=== PATIENT | female | born 1950 | race Caucasian/White ===

== ENCOUNTER 2018-03-13 11:40 | Observation (INO) | payer MEDICARE ==
[2018-03-13] MEDS ORDERED: ISOVUE-370 76%-LOCM 1 ML ONE (12:06)
[2018-03-13 13:13] LABS: #Eosinphils 0.1 thou/uL (0.0-0.7); #Lymphocytes 2.5 thou/uL (1.20-3.40); #Monocytes 0.5 thou/uL (0.11-0.59); #Neutrophils 7.5 thou/uL (1.40-6.50); %Basophils 0.3 % (0.0-1.0); %Eosinophils 0.6 % (0.0-10.0); %Lymphocytes 23.8 % (21.0-51.0); %Monocytes 4.9 % (0.0-10.0); %Neutrophils 70.5 % (42.0-75.0); Mean Corpuscular HGB CONC 33.8 g/dL (32.0-36.0); Mean Corpuscular Hemoglobin 29.5 pg (27.0-31.0); Mean Corpuscular Volume 87.3 fL (78.0-98.0); Mean Platelet Volume 6.9 fL (7.4-10.4); Platelet Count 348 thou/uL (130-400); RBC Distribution Width 14.2 % (11.5-14.5); White Blood Cell (WBC) Count 10.6 thou/uL (4.8-10.8)
[2018-03-13 13:27] LABS: ALT (SGPT) Less than 7 U/L (8-55); AST (SGOT) 10 U/L (5-34); Albumin 3.4 g/dL (3.4-4.8); Alkaline Phosphatase 110 U/L (40-150); Anion Gap 18 mmol/L (10-20); BUN (Urea Nitrogen) 8 mg/dL (9.8-20.1); Bilirubin, Total 0.4 mg/dL (0.2-1.2); CK (CPK) 34 U/L (29-168); Calc. Creatinine Clearance 0 mL/min (70-130); Calcium 8.7 mg/dL (7.8-10.44); Carbon Dioxide 23 mmol/L (23-31); Chloride 99 mmol/L (98-107); Estimated GFR-MDRD Greater than 90; Globulin 3.2 g/dL (2.4-3.5); Glucose 108 mg/dL (80-115); Lipase 15 U/L (8-78); Potassium 4.2 mmol/L (3.5-5.1); Protein, Total 6.6 g/dL (6.0-8.3); Sodium 136 mmol/L (136-145)
[2018-03-13 13:28] LABS: CKMB 0.7 ng/mL (0-6.6); Troponin I Less than 0.010 ng/mL (< 0.028)
--- NOTE | 2018-03-13 13:45 | CT ---
CT BRAIN NONCONTRAST: HISTORY: 67-year-old female with altered mental status and head trauma from fall. FINDINGS: There is no midline shift or any other mass effect. There is no evidence of acute intracranial hemor rhage, large cortical infarct, obstructive hydrocephalus, or extraaxial fluid collection. The calvar ium is intact. IMPRESSION: No acute intracranial findings. jn [] POS: [facility]
--- NOTE | 2018-03-13 13:46 | RAD ---
CHEST 1 VIEW: Date: 03/13/18 HISTORY: Altered mental status. COMPARISON: CT chest dated 02/15/16. Chest 1 view dated 02/13/16. FINDINGS: Chronic pleural and parenchymal changes lung bases. There is mild retraction of the right minor fissu re. There appears to be some scarring in the right upper lobe. Heart size upper limits of normal. IMPRESSION: 1. Severe retraction of the right minor fissure with what appears to be scarring in the right upper lobe, although nonemergent CT chest recommended for further characterization. 2. Mild chronic interstitial opacities both lung bases. POS: [facility]
[2018-03-13 13:52] LABS: Bilirubin Negative (Negative); Blood, Urine Negative (Negative); Clarity CLOUDY (Clear); Glucose, Urine (Dipstick) Negative (Negative); Leukocyte Small (Negative); Nitrite Positive (Negative); Protein, Urine (Dipstick) Negative (Neg-Trace); Urobilinogen 0.2 mg/dL (0.2-1.0); pH, Urine 5.5 (5.0-9.0)
[2018-03-13 13:54] LABS: Bacteria/HPF 4+ HPF (None Seen); Hyaline Casts/LPF 0-3 HYALINE CAST LPF (0-3 Hyaline); Pathc Cast-AUWi Flag 0.43 (0-2.49); RBC/HPF 0-3 HPF (0-3); Squamous Epithelial 0-3 HPF (0-3)
[2018-03-13 14:01] LABS: Amphetamine Not Detected (NotDetected); Barbiturates Screen Not Detected (NotDetected); Benzodiazepine Screen Detected (NotDetected); Cocaine Metabolite Screen Not Detected (NotDetected); Medtox Control Line Valid? VALID (VALID); Medtox Reader # READER 1; Methadone Not Detected (NotDetected); Methamphetamine Not Detected (NotDetected); Opiate Screen Detected (NotDetected); Oxycodone Screen Not Detected (NotDetected); Phencyclidine (PCP) Not Detected (NotDetected); THC/Cannabinoid Screen Not Detected (NotDetected); Tricyclic Screen Detected (NotDetected)
--- NOTE | 2018-03-13 14:34 | ULT ---
RIGHT LOWER EXTREMITY VENOUS DOPPLER: Date: 03/13/18 HISTORY: Right lower extremity swelling, pain, edema. COMPARISON: Ultrasound dated 02/13/16. FINDINGS: Real-time Thompson scale and color Doppler with spectral analysis of the right lower extremity venous sy stem was performed with the linear transducer. Common femoral, femoral, proximal portions of greater saphenous and deep femoral veins, as well as the popliteal and posterior tibial veins were interrogat ed. There is a complex popliteal cyst, which is thick-welled. Moderate lower extremity edema. No deep tricia ous thrombosis. IMPRESSION: No deep venous thrombosis. POS: [facility]
--- NOTE | 2018-03-13 17:24 | RAD ---
TWO VIEW LEFT HIP 03/13/18 CLINICAL HISTORY: Posttraumatic left hip pain, injury. There is no fracture or dislocation of the left hip. Scattered osseous degenerative change is present . IMPRESSION: No acute left hip fracture. POS: [facility]
--- NOTE | 2018-03-13 17:42 | CT ---
CTA CHEST WITH 3D VOLUME RENDERING 03/13/18 INDICATION: Elevated D-dimer with weakness. FINDINGS: There is no evidence of significant filling defect of the pulmonary arterial system to indicate an ac geni pulmonary embolus. Scattered vascular calcification and noncalcified plaque is present within the regional arterial structures. There are bilateral ground glass nodular pulmonary parenchymal opaciti es in addition to subcentimeter noncalcified pulmonary nodularity. No effusion. Incidental note of l ow density foci of each kidney, partially imaged favoring cysts although incompletely characterized. There is punctate calcification, nonobstructive involving left kidney. Cholecystectomy clips are pres ent. IMPRESSION: 1. No acute pulmonary embolus. 2. Scattered ground glass and noncalcified pulmonary nodules, bilaterally. The findings are nons pecific and could relate to atypical infection and therefore followup CT thorax upon completion of tr eatment regimen and resolution of acute symptoms, in 2 to 3 months is warranted to evaluate for expec montrell resolution. At this time, additional noncalcified pulmonary nodules may also be reassessed. POS: [facility]
--- NOTE | 2018-03-13 17:47 | RAD ---
3FRONTAL VIEW PELVIS: 03/13/18 No prior comparison. INDICATION: Posttraumatic pelvic pain. FINDINGS: There is high density contrast within the urinary bladder which does partially obscure osseous struct ures of this region. No discrete fracture or dislocation otherwise identified. IMPRESSION: No definite evidence for acute pelvic fracture, within limitations. POS: [facility]
[2018-03-13] MEDS ORDERED: Ondansetron HCl/PF 4 MG/2 ML Vial IVP PRN (22:33)
[2018-03-13] MEDS ORDERED: Acetaminophen 325 MG TAB PO PRN (22:33)
[2018-03-13] MEDS ORDERED: Lorazepam 0.5 MG TAB PO PRN (22:35)
[2018-03-14] MEDS: HYDROcodone/Acetaminophen 7.5/325 mg Tablet PO PRN ×3 (00:28→14:17)
[2018-03-14 03:28] VITALS: BMI 20.6
--- NOTE | 2018-03-14 04:45 | HP ---
CODE STATUS: FULL RESUSCITATION. TIME OF EVALUATION: 10:05 p.m. No PCP. CHIEF COMPLAINT: The patient had a fall from bed. HISTORY OF PRESENT ILLNESS: This is a 67-year-old female patient with a past medical history of hypo thyroidism, GERD, hyperlipidemia, hypertension, and leaking problems. The patient came to the hospit al after having a fall, she reported that she fell on her left side and was unable to stand up. She reported having decreased strength. Also, she cannot be specific about if it was unilateral, no jani r triggers, no alleviating factors, symptoms are severe. REVIEW OF SYSTEMS: Constitutional: No fever or chills. Generalized weakness. Respiratory: No cou gh or sputum production or shortness of breath. Cardiovascular: No chest pain, palpitation, shortne ss of breath. Gastrointestinal: No nausea, no vomiting, diarrhea, abdominal pain. 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 Genitourinary: No burning with urination. Extremities: No le g swelling. All other systems were reviewed and negative except for the findings mentioned above. PAST MEDICAL HISTORY: Has been mentioned in the HPI. SOCIAL HISTORY: No drug use every day smoker, 2 packs per day. PAST SURGICAL HISTORY: Cholecystectomy. PSYCHIATRIC HISTORY: Depression. FAMILY HISTORY: Reviewed and noncontributory for current presentation. ALLERGIES: PENICILLIN and SULFA. REPORTED MEDICATIONS: Levothyroxine, lisinopril, amitriptyline, gabapentin, Nexium, [place]. PHYSICAL EXAMINATION: VITAL SIGNS: On presentation, blood pressure 89/57, heart rate 108, temperature 98.3, oxygen saturat ion 91, the blood pressure has remained in the 110s. GENERAL APPEARANCE: The patient is alert, oriented, not in acute distress. HEENT: Eyes, normal conjunctivae. Moist oral mucosa. Anicteric. NECK: No JVD. RESPIRATORY: Bilateral air entry. No rales, no wheezes. Symmetric expansion. CARDIOVASCULAR: Normal rate, regular rhythm. No murmurs, no gallop. No edema. ABDOMEN: Soft, normal bowel sounds. MUSCULOSKELETAL: Baseline range of motion and strength. No tenderness. SKIN: Warm and intact. No pallor, no rash or redness. NEUROLOGIC: Baseline sensory. No evidence of any new focal weakness. The patient is at baseline. Cranial nerves seem to be intact. PSYCHIATRIC: The patient is a good mood. No anxiety, oriented, optimal judgment. IMAGING AND LABORATORY DATA: EKG was reviewed. The patient has normal sinus rhythm with a rate of 9 2 with low voltage QRS, left anterior fascicular block, QRS 84, QT corrected 460. The chest x-ray wa s reviewed. The patient has severe retraction of the right minor fissure. There appears to be scarr ing of the right upper lobe. Also, no emergency discharge recommended. No further characterization. Mild chronic interstitial opacities in both lungs. Brain CT was done and it was reported as no acu te intracranial finding. Vascular ultrasound was done and no deep venous thrombosis. CTA was done. No acute pulmonary embolism and scattered ground glass opacities. Noncalcified pulmonary nodules bi laterally. The findings are nonspecific and could be related to atypical infection and therefore fol low up CT thorax regimen and resolution of acute symptoms into 3 months is warranted to evaluat e for expected resolution. Labs are reviewed. The patient has white count 10.6, hemoglobin 13, MCV 87, platelet count 384. D-dimer is 6.9. Sodium 136, potassium 4.2, chloride 99, carbon dioxide 23, anion gap of 18, creatinine 0.6. LFTs were normal. Troponin was negative. White count in the urine was 11 to 20. Toxicology opiates detected, tricyclics detected, benzodiazepines detected. Three fr ontal views of pelvis, no definite evidence for acute pelvic fracture within limitations. Hip x-ray, no acute left hip fracture. ASSESSMENT AND PLAN: The patient presented to the hospital for the following medical problems. 1. Status post fall, with left-sided weakness reported that lasted for a few minutes, unclear etiolo gy, transient ischemic attack remains in the differential. The patient will get a stroke workup. We will follow, we will treat accordingly. 2. Urinary tract infection. Urinalysis is positive, patient received antibiotics, follow up culture s, adjust treatment as needed. 3. Possible right leg cellulitis. The patient had a trauma few days ago. The right leg is more red than the left one, patient has already on antibiotics, monitor, and adjust treatment as needed. 4. Hyperlipidemia, reconcile home medications, adjust treatment as needed. 5. Uncontrolled hypertension. The patient presented with hypotension, responded to fluids, unclear etiology. We will monitor, we will treat accordingly. 6. Deep venous thrombosis prophylaxis. D-dimer was high, CT angio was negative. 7. Possible atypical pneumonia, antibiotics, we will continue, adjustment treatment as needed.
[2018-03-14 05:48] LABS: #Basophils 0.1 thou/uL (0.0-0.2); #Eosinphils 0.2 thou/uL (0.0-0.7); #Lymphocytes 1.8 thou/uL (1.20-3.40); #Monocytes 0.4 thou/uL (0.11-0.59); #Neutrophils 3.7 thou/uL (1.40-6.50); %Basophils 1.6 % (0.0-1.0); %Eosinophils 2.9 % (0.0-10.0); %Lymphocytes 29.5 % (21.0-51.0); Mean Corpuscular HGB CONC 31.8 g/dL (32.0-36.0); Mean Corpuscular Volume 88.2 fL (78.0-98.0); Platelet Count 302 thou/uL (130-400); RBC Distribution Width 14.4 % (11.5-14.5); Red Blood Cell (RBC) Count 3.92 mill/uL (4.20-5.40); White Blood Cell (WBC) Count 6.2 thou/uL (4.8-10.8)
[2018-03-14 06:20] LABS: Anion Gap 10 mmol/L (10-20); BUN (Urea Nitrogen) 6 mg/dL (9.8-20.1); Calc. Creatinine Clearance 93 mL/min (70-130); Calcium 8.3 mg/dL (7.8-10.44); Carbon Dioxide 26 mmol/L (23-31); Cardiac Risk 3.9 (Less than 4.5); Chloride 108 mmol/L (98-107); Cholesterol 125 mg/dl (< 200 Desired); Estimated GFR-MDRD Greater than 90; Glucose 83 mg/dL (80-115); HDL Cholesterol 32 mg/dL (>60 Neg Risk); LDL Cholesterol, Calculated 75 mg/dL; Potassium 4.2 mmol/L (3.5-5.1); Sodium 140 mmol/L (136-145); Triglycerides 91 mg/dL (Less than 150)
[2018-03-14] MEDS ORDERED: Aspirin 325 mg Enteric Coated Tablet PO SCH (09:00)
[2018-03-14] MEDS ORDERED: Levothyroxine Sodium 50 MCG TAB PO SCH (09:00)
[2018-03-14] MEDS ORDERED: Lisinopril 5 MG TAB PO SCH (09:00)
[2018-03-14] MEDS ORDERED: Enoxaparin Sodium 40 MG/0.4 ML SYRINGE SC SCH (09:00)
[2018-03-14] MEDS: Gabapentin 300 MG CAP PO SCH ×2 (09:43→14:17)
--- NOTE | 2018-03-14 11:43 | ULT ---
ULTRASOUND DOPPLER DUPLEX CAROTID: Date: 03/14/18 HISTORY: 67-year-old female status post TIA. TECHNIQUE: Thompson scale, color flow, and spectral analysis of major arteries of neck. FINDINGS: The bilateral internal carotid arteries are tortuous. There is mild plaque at the bilateral proximal internal carotid arteries, including carotid bulbs. Highest peak systolic velocities in the internal carotid arteries are 110 cm/s on the right and 125 cm/s on the left. End-diastolic velocities are 30 cm/s bilaterally. Vertebral artery flow is antegrade bilaterally. ICA/CCA ratios are 0.9 on the right and 1.2 on the left. IMPRESSION: 1. Mild atherosclerotic plaque at the bilateral carotid bulbs. 2. No evidence of hemodynamically significant stenosis. 3. Tortuous of the bilateral internal carotid arteries. POS: [facility]
--- NOTE | 2018-03-14 12:57 | CON ---
DATE OF CONSULTATION: 03/14/2018 CHIEF COMPLAINT: TIA. HISTORY OF PRESENT ILLNESS: Patient is a 67-year-old right-handed lady who states she is quite activ e normally. She woke up yesterday morning like her normal routine and she suddenly felt dizzy and fe ll down and she was lying there until her family helped brought her to the ER and after she came to [facility] ER, she felt like her left side was better. She felt left-sided weakness and she could not get up and she has had decreased strength on the left side, but it resolved at this time. Today, she feels like she is back to her baseline. Normally, she is extremely active, does not sit down and is const antly moving and doing things around the house. PREVIOUS MEDICAL HISTORY: Patient has hypothyroidism, hypertension, gastroesophageal reflux disease and hypercholesterolemia. She has lichen planus and osteoporosis. SOCIAL HISTORY: She smokes 1 pack a day for a number of years. No alcohol. [facility]. PAST SURGICAL HISTORY: She had a cholecystectomy in the past. She has history of hysterectomy and l eft cataract. FAMILY HISTORY: Negative for any stroke in her family. ALLERGIES: She is allergic to PENICILLIN, SULFA DRUGS. CURRENT MEDICATIONS: She does not take aspirin at home. Now, she thinks she probably should take so me aspirin every day and she also takes levothyroxine, lisinopril, amitriptyline, gabapentin, Nexium, and [place] at home. REVIEW OF SYSTEMS: PULMONARY: Positive for cough which is chronic in her case. CARDIOVASCULAR: Hi story of chest pain or palpitations. GASTROINTESTINAL: Positive for acid reflux, but negative for a ny diarrhea or vomiting. GENITOURINARY: Negative for dysuria or blood in urine. NEUROLOGIC: Posit aleksandr for dizziness, fall and left-sided weakness which were transient. HEMATOLOGIC: Normal. LABORATORY DATA: White count 6.2, hemoglobin 11, hematocrit 34.6 and platelets 302. Chemistry: Sod ium 140, potassium 4.2, chloride 108, bicarbonate 26, BUN 6, creatinine 0.50. Triglycerides 91, chol esterol 125, LDL 75 and HDL 32. Heart disease risk ratio 3.9. TSH is 1.55. Urinalysis positive for nitrite and small leukocyte esterase. PHYSICAL EXAMINATION: VITAL SIGNS: Blood pressure 134/76, pulse 98, temperature 98.1, respiratory rate is 18. GENERAL APPEARANCE: Thin built lady who is coughing. Family by her bedside. She has some bruising in her left knee area as well as her hip. CHEST: Clear vesicular breathing. HEART: S1, S2 heard, no murmurs. ABDOMEN: Soft and nontender. NEUROLOGICAL: Higher intellectual functions are normal. Cranial nerves II-XII normal. Normal extra ocular movements. 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 Tongue midline, no atrophy noted. Normal hearing to finger rub bila terally and normal elevation of palate. Motor exam: Bulk normal, tone normal, strength 5/5 in upper and lower extremities. Muscle groups tested, deltoid, biceps, triceps, wrist extension/flexion, fin carri extension, flexion iliopsoas, hamstrings, quadriceps, ankle dorsiflexion and plantarflexion bilat erally. Cerebellar: Normal ejtofb-sy-hkbp and sldx-om-klts. SENSORY: Normal touch and temperature, vibration and proprioception bilaterally. IMAGING DATA: MRI is pending. Brain CT scan report showed no acute intracranial changes and her car otid Doppler showed mild atherosclerotic plaque at the bilateral carotid bulbs. No evidence of any h emodynamically significant stenosis and her hip x-ray was negative for any fracture. Her pelvic x-ra y was also negative for any fractures. Ultrasound of her lower extremities was negative for any DVTs and chest CT angio shows bilateral pulmonary nodules, could be due to atypical infection. IMPRESSION: Patient is a 67-year-old lady with history of fall, dizziness as well as left-sided weak ness. Her dizziness and left-sided weakness have resolved. On x-ray, she did not have any fractures and there are no clots in either her long or her legs. Carotid Dopplers are negative. Her clinical examination is normal at this time. Due to hypertension and smoking, she does have high risk factor for stroke. Her MRI is currently pending. Diagnosis is most consistent with transient ischemic att ack. RECOMMENDATIONS: 1. I will review MRI report. 2. Aspirin for stroke prophylaxis and prevention. 3. I advised her on lifestyle changes, particularly regarding her smoking. She could start a smokin g cessation program. I will follow up patient with you. She is still here and through request to Dr Deborah Browning for continuity of care. If her MRI is negative, she can be discharged home.
[2018-03-14 13:08] VITALS: BP 129/77; TEMP 98
--- NOTE | 2018-03-14 13:13 | MRI ---
MRI BRAIN NONCONTRAST: HISTORY: 67-year-old female with altered mental status and head trauma. TIA. FINDINGS: The ventricles are normal in size and configuration. There is no restricted diffusion, midline shift or any other mass effect, recent intraaxial hemorrhage, or extraaxial fluid collection. There are m ultiple scattered small T2-hyperintensities in the cerebral white matter consistent with mild chroni c ischemic white matter changes due to mild microvascular atherosclerosis. IMPRESSION: 1. Mild chronic ischemic white matter changes. 2. Otherwise negative. jn[] POS: [facility]
--- NOTE | 2018-03-14 13:14 | PDOC.PN ---
- Subjective Encounter Start Date: 03/14/18 Encounter Start Time: 13:13 Subjective: feels better.reports h/o back pain d/t chr fractures -: /o r knee pain & swelling for months -: c/o runny nose,chills and headache - Objective Resuscitation Status: Resuscitation Status FULL:Full Resuscitation MAR Reviewed: Yes Vital Signs & Weight: Vital Signs (12 hours) Temp Pulse Resp BP BP Pulse Ox 03/14/18 12:00 98.0 F 78 20 129/77 93 L 03/14/18 09:50 90 134/76 03/14/18 09:43 77 03/14/18 08:59 98.1 F 77 18 03/14/18 07:45 98.1 F 77 18 106/64 92 L 03/14/18 04:00 97.7 F 91 18 106/69 95 Weight Weight 120 lb 3.2 oz Result Diagrams: 03/14/18 05:28 03/14/18 05:28 Additional Labs: Microbiology 03/13/18 13:09 Venous blood - Right Hand Blood Culture - Preliminary Specimen has been received and culture in progress. No Growth to date. 03/13/18 13:09 Venous blood - Left Arm Blood Culture - Preliminary Specimen has been received and culture in progress. No Growth to date. labs reviewed Phys Exam - Physical Examination Constitutional: NAD HEENT: PERRLA, moist MMs, sclera anicteric, oral pharynx no lesions Neck: no nodes, no JVD, supple, full ROM Respiratory: no wheezing, no rales, no rhonchi, clear to auscultation bilateral Cardiovascular: RRR, no significant murmur Gastrointestinal: soft, non-tender, no distention, positive bowel sounds Musculoskeletal: no edema, pulses present Neurological: non-focal, normal sensation, moves all 4 limbs Psychiatric: normal affect, A&O x 3 Skin: no rash Dx/Plan (1) Left-sided weakness Code(s): R53.1 - WEAKNESS Status: Acute (2) UTI (urinary tract infection) Status: Acute (3) Fall Code(s): W19.XXXA - UNSPECIFIED FALL, INITIAL ENCOUNTER Status: Acute (4) Hypothyroidism Code(s): E03.9 - HYPOTHYROIDISM, UNSPECIFIED Status: Chronic (5) Tobacco abuse Code(s): Z72.0 - TOBACCO USE Status: Chronic - Plan plan discussed w/ family, PT/OT, social service assistant, out of bed/ambulate, DVT proph w/SCDs Carotid US does not show much plaque ,no stenosis -: Awaiting MRI results -: Consult CM for HH.pt w chr vertebral fractures w pain w limited mobility -: Hd stable.blood Cx negative so far -: cont ABx for UTI. * . Review of Systems - Review of Systems Constitutional: chills. negative: fever, sweats, weakness, malaise, other ENT: negative: Ear Pain, Ear Discharge, Nose Pain, Nose Discharge, Nose Congestion, Mouth Pain, Mouth Swelling, Throat Pain, Throat Swelling, Other Musculoskeletal: Back Pain, Other - Medications/Allergies Allergies/Adverse Reactions: Allergies Allergy/AdvReac Type Severity Reaction Status Date / Time Penicillins Allergy Verified 01/25/13 21:43 sulfacetamide sodium Allergy Verified 01/25/13 21:44 [From Sulfamide] Medications: Current Medications Acetaminophen (Tylenol) 650 mg PO Q4H PRN PRN Reason: Headache/Fever or Pain Hydrocodone Bitart/Acetaminophen ([place] 7.5/325) 1 tab PO Q6H PRN PRN Reason: Moderate Pain (4-6) Last Admin: 03/14/18 09:43 Dose: 1 tab Alendronate Sodium (Fosamax) 70 mg PO Q7D [facility] Amitriptyline HCl (Elavil) 50 mg PO HS [facility] Aspirin (Ecotrin) 325 mg PO DAILY [facility] Last Admin: 03/14/18 09:43 Dose: 325 mg Atorvastatin Calcium (Lipitor) 10 mg PO HS [facility] Enoxaparin Sodium (Lovenox) 40 mg SC 0900 [facility] Last Admin: 03/14/18 09:44 Dose: 40 mg Gabapentin (Neurontin) 600 mg PO TID [facility] Last Admin: 03/14/18 09:43 Dose: 600 mg Levofloxacin 750 mg/ Device 150 mls @ 100 mls/hr IVPB 1600 [facility] Levothyroxine Sodium (Synthroid) 50 mcg PO DAILY [facility] Last Admin: 03/14/18 09:43 Dose: 50 mcg Lisinopril (Zestril) 5 mg PO DAILY [facility] Last Admin: 03/14/18 09:43 Dose: 5 mg Lorazepam (Ativan) 0.5 mg PO PRN PRN PRN Reason: Anxiety Ondansetron HCl (Zofran) 4 mg IVP Q6H PRN PRN Reason: Nausea/Vomiting Pantoprazole Sodium (Protonix) 40 mg PO QAM[facility] Last Admin: 03/14/18 09:43 Dose: 40 mg
[2018-03-14] MEDS ORDERED: Amitriptyline HCl 100 MG TAB PO SCH (21:00)
[2018-03-14] MEDS ORDERED: Atorvastatin Calcium 10 MG TAB PO SCH (21:00)
--- NOTE | 2018-03-14 22:17 | DIS ---
DATE OF ADMISSION: 03/13/2018 DATE OF DISCHARGE: 03/14/2018 CONDITION AT THE TIME OF DISCHARGE: Stable and improved. DISCHARGE DIAGNOSES: 1. Transient ischemic attack. 2. Urinary tract infection. 3. Fall. 4. Chronic back pain. 5. Osteoarthritis of the back and knee. 6. Chronic vertebral fractures. 7. Hypothyroidism. 8. Ongoing tobacco abuse. DISCHARGE DISPOSITION: Home with home health. rn manager is working with her to have set up Home Health for physical therapy and occupational therapy. PRIMARY CARE PHYSICIAN: Bal Pereira MD PROCEDURES DONE IN THE HOSPITAL: 1. Vascular ultrasound of the right lower extremity which is negative for any DVT. 2. CT angio of the thorax, which is negative for any pulmonary embolism. 3. MRI of the brain which is negative for any acute infarction. Chronic white matter changes seen. 4. Carotid Doppler ultrasound, which is negative for any significant stenosis or block. 5. Transthoracic echocardiogram, the results are pending. INHOUSE CONSULTATION: Neurology, Dr. Suzi Carias. DISCHARGE MEDICATIONS: NEW MEDICATIONS: Aspirin 81 mg daily. RESUME HOME MEDICATIONS: As follows, pravastatin 40 mg daily, levothyroxine 50 mcg daily, Elavil 50 mg daily, levofloxacin 500 mg p.o. daily for 5 more days; Neurontin 300 mg p.o. t.i.d., please note t he dose has been decreased from 600 mg p.o. t.i.d. as per patient's request; lisinopril 5 mg daily, l orazepam as needed, Nexium 40 mg daily, Fosamax every 7 days, [place] p.r.n. as home dosages. No new n arcotic prescriptions were given. BRIEF HISTORY: Ms. Singh is a 67-year-old female with known history of hypothyroidism, GERD, dyslipi demia, hypertension, and tobacco abuse who presented to the emergency room with complaints of sustain ing a fall and inability to stand up. She also noticed decreased strength. She reported that she wa s eventually able to get up with the help of the friend she lives with. She denies any loss of consc iousness. She denies any prodromal symptoms prior to the fall. She does report that lately she has been falling quite often. She reported that she has history of some vertebral fractures as well as h as been suffering right knee pain and swelling for the last few months. At the time of admission, [facility] was hemodynamically stable. A CT scan of the brain was done in the emergency room which was negati ve for any acute changes. She also had some complaints of right leg pain or swelling, so right lower extremity ultrasound was done which was negative as well. She had elevated D-dimer at 6.9, so CT an hermelinda was also done which was negative for any pulmonary embolism. She did have some scattered nonspec ific ground glass opacities bilaterally. She had no pulmonary symptoms at the time of presentation. Please see admission history and physical for further detail. She did have some pyuria in the urina lysis. Pelvic x-rays and left hip x-rays were negative for any fractures. HOSPITAL COURSE: The patient was admitted to rule out transient ischemic attack/cerebrovascular acci dent. Neurology was consulted. She underwent carotid Doppler ultrasound as well as MRI of the brain and echocardiogram. Her echocardiogram results are pending at this time. Carotid Doppler is withou t any acute stenosis. MRI is negative for any acute CVA. Dr. Albina Carias saw her for the Neurolo gy and recommended that this most likely represents TIA, so she was started on low dose aspirin and w as continued on her statin. She was seen and examined prior to discharge and is cleared by Neurology for discharge as the MRI is negative. She will follow with the primary care physician in few days. She was also given a referra l for Orthopedics to discuss her vertebral fractures as well as right knee swelling of 4 months' dura tion. She has also been set up for physical therapy and occupation therapy with a home health agency .
[2018-03-20] MEDS ORDERED: Alendronate Sodium 70 mg Tablet PO SCH (06:00)
== END 2018-03-14 16:01 | disposition home or self-care (01) ==
LOC: ERS 11:40 → 2SE 17:00
PROVIDERS: ADMIT Internal Medicine; ATTEND Internal Medicine
DX: G45.9 Transient cerebral ischemic attack, unspecified (principal); N39.0 Urinary tract infection, site not specified; M17.10 Unilateral primary osteoarthritis, unspecified knee; E03.9 Hypothyroidism, unspecified; F17.200 Nicotine dependence, unspecified, uncomplicated; Z79.82 Long term (current) use of aspirin; Z79.899 Other long term (current) drug therapy; Z88.0 Allergy status to penicillin; Z88.2 Allergy status to sulfonamides
CPT/HCPCS: 70450; 70551; 71045; 71275; 72170; 73502; 80048; 80061; 80306; 82140; 82550; 82553; 83605; 83690; 83880; 84484; 85025; 85379; 87040; 93005; 93306; 93880; 93971; 96361; 96365; 96372; 97139; 99285; G0378; 36415; 80053; 81003; 81015; 84443; J1650; J1956

== ENCOUNTER 2018-06-11 20:22 | Inpatient (IN) | payer MEDICARE ==
[~2018-06-11 20:22] MED LIST: Iopamidol 370 76% 100 ML VIAL ONE
[2018-06-11] MEDS ORDERED: Ondansetron PF 4 MG/2 ML Vial ONE (20:45)
[2018-06-11 21:17] LABS: #Basophils 0.1 thou/uL (0.0-0.2); #Eosinphils 0.1 thou/uL (0.0-0.7); #Lymphocytes 1.8 thou/uL (1.20-3.40); #Monocytes 0.4 thou/uL (0.11-0.59); #Neutrophils 4.6 thou/uL (1.40-6.50); %Basophils 1.9 % (0.0-1.0); %Eosinophils 1.1 % (0.0-10.0); %Lymphocytes 26.1 % (21.0-51.0); %Monocytes 5.2 % (0.0-10.0); %Neutrophils 65.7 % (42.0-75.0); Hemoglobin 14.8 g/dL (12.0-16.0); Mean Corpuscular HGB CONC 31.8 g/dL (32.0-36.0); Mean Corpuscular Hemoglobin 29.3 pg (27.0-31.0); Mean Corpuscular Volume 92.1 fL (78.0-98.0); Mean Platelet Volume 8.8 fL (7.4-10.4); Platelet Count 319 thou/uL (130-400); RBC Distribution Width 15.4 % (11.5-14.5); Red Blood Cell (RBC) Count 5.05 mill/uL (4.20-5.40); White Blood Cell (WBC) Count 6.9 thou/uL (4.8-10.8)
[2018-06-11 21:40] LABS: ALT (SGPT) 42 U/L (8-55); AST (SGOT) 71 U/L (5-34); Albumin 3.7 g/dL (3.4-4.8); Alkaline Phosphatase 159 U/L (40-150); Anion Gap 14 mmol/L (10-20); BUN (Urea Nitrogen) 4 mg/dL (9.8-20.1); Bilirubin, Total 0.3 mg/dL (0.2-1.2); CK (CPK) 327 U/L (29-168); Calc. Creatinine Clearance 0 mL/min (70-130); Calcium 7.5 mg/dL (7.8-10.44); Carbon Dioxide 31 mmol/L (23-31); Chloride 97 mmol/L (98-107); Estimated GFR-MDRD 88; Globulin 2.8 g/dL (2.4-3.5); Glucose 97 mg/dL (80-115); Lipase 13 U/L (8-78); Potassium 3.7 mmol/L (3.5-5.1); Protein, Total 6.5 g/dL (6.0-8.3); Sodium 138 mmol/L (136-145)
[2018-06-11 21:43] LABS: CKMB 3.3 ng/mL (0-6.6); Troponin I Less than 0.010 ng/mL (< 0.028)
[2018-06-11 21:59] LABS: Bilirubin Negative (Negative); Blood, Urine Negative (Negative); Clarity CLEAR (Clear); Glucose, Urine (Dipstick) Negative (Negative); Leukocyte Trace (Negative); Nitrite Negative (Negative); Protein, Urine (Dipstick) Negative (Neg-Trace); Urobilinogen 0.2 mg/dL (0.2-1.0); pH, Urine 6.5 (5.0-9.0)
[2018-06-11 22:01] LABS: Bacteria/HPF None Seen HPF (None Seen); Hyaline Casts/LPF 0-3 HYALINE CAST LPF (0-3 Hyaline); RBC/HPF 0-3 HPF (0-3); Squamous Epithelial 0-3 HPF (0-3); WBC/HPF 0-3 HPF (0-3)
[2018-06-11 22:02] LABS: Specific Gravity, Urine 1.004 (1.002-1.036)
--- NOTE | 2018-06-11 23:07 | CT ---
CONTRAST ENHANCED CT IMAGES ABDOMEN AND PELVIS: 06/11/18 HISTORY: Diarrhea for three weeks. Nausea and vomiting. Contrast enhanced CT images of the abdomen and pelvis is obtained after administration of IV contrast . The lung bases are unremarkable. The liver and spleen are unremarkable. The gallbladder has been deal rgically removed. The pancreas is unremarkable. Adrenal glands unremarkable. Bilateral renal cysts seen. Calcifications seen in the lower pole of the right kidney compatible with renal calculus. No evidence of dilatation seen in the ureters. There is bilateral opacification of t he ureters and collecting system. The small bowel demonstrates no significant dilatation. There is abnormal enhancement of the colonic mucosa concerning for colitis. Atherosclerotic calcifications seen in the abdominal aorta. SMA and celiac and SILVIA are patent. Multilevel lumbar degenerative changes seen. IMPRESSION: Abnormal enhancement in the colon compatible with colitis. POS: [facility]
[2018-06-11] MEDS ORDERED: Promethazine HCl 25 MG/ML VIAL ONE (23:46)
[2018-06-12] MEDS ORDERED: metroNIDAZOLE 500 MG/100 ML BAG ONE
[2018-06-12] MEDS ORDERED: Ondansetron PF 4 MG/2 ML Vial IVP PRN (00:55)
[2018-06-12] MEDS ORDERED: Sodium Chloride 0.9% 1,000 ML IV SCH (00:55)
[2018-06-12] MEDS ORDERED: Ondansetron ODT 4 MG TAB SL PRN (00:55)
[2018-06-12] MEDS: Sodium Chloride 0.9% 1,000 ML IV SCH ×2 (02:04→15:47)
[2018-06-12] MEDS ORDERED: Clobetasol 0.05% Cream 15 gm Tube TOP PRN (04:54)
[2018-06-12 04:59] LABS: #Eosinphils 0.1 thou/uL (0.0-0.7); #Monocytes 0.5 thou/uL (0.11-0.59); #Neutrophils 3.6 thou/uL (1.40-6.50); %Eosinophils 1.2 % (0.0-10.0); %Lymphocytes 31.9 % (21.0-51.0); %Monocytes 7.6 % (0.0-10.0); %Neutrophils 59.2 % (42.0-75.0); Hemoglobin 11.8 g/dL (12.0-16.0); Mean Corpuscular Hemoglobin 28.4 pg (27.0-31.0); Mean Corpuscular Volume 91.7 fL (78.0-98.0); Mean Platelet Volume 8.2 fL (7.4-10.4); Platelet Count 263 thou/uL (130-400); Red Blood Cell (RBC) Count 4.14 mill/uL (4.20-5.40); White Blood Cell (WBC) Count 6.1 thou/uL (4.8-10.8)
[2018-06-12 05:21] LABS: Anion Gap 12 mmol/L (10-20); BUN (Urea Nitrogen) Less than 4 mg/dL (9.8-20.1); Calc. Creatinine Clearance 77 mL/min (70-130); Calcium 6.5 mg/dL (7.8-10.44); Carbon Dioxide 27 mmol/L (23-31); Chloride 105 mmol/L (98-107); Estimated GFR-MDRD Greater than 90; Glucose 77 mg/dL (80-115); Sodium 141 mmol/L (136-145)
[2018-06-12 05:25] LABS: Potassium 2.8 mmol/L (3.5-5.1)
[2018-06-12] MEDS: Levothyroxine Sodium 50 MCG TAB PO SCH (05:26)
[2018-06-12] MEDS ORDERED: Levothyroxine Sodium 50 MCG TAB PO SCH (06:00)
--- NOTE | 2018-06-12 06:05 | HP ---
CHIEF COMPLAINT: Nausea, vomiting, diarrhea. HISTORY OF PRESENT ILLNESS: This is a 67-year-old female with past medical history of hypothyroidism , GERD, hyperlipidemia, hypertension, osteoporosis, lichen planus, chronic back pain from lumbar and thoracic fractures, presenting with diarrhea, nausea, and vomiting which has been ongoing for the pas t 2 weeks. She started having diarrhea 2 weeks ago and the diarrhea has been now resolving. The pat ient states that when she eats or drinks anything, she goes to the bathroom right away. The patient states that on Thursday, she was diagnosed with pneumonia and she was started on levofloxacin and durin g that time her primary care physician told her that if she continues to experience nausea and vomiti ng, she will come to the ED to be evaluated. Per patient, she had taken Imodium in the past which se emed to not have helped with her diarrhea. At this point, the patient denies any fever, chills, ches t pain, palpitations, but admits to nausea, vomiting, diarrhea. Of note, patient was recently seen o n 03/14/2018 for TIA. REVIEW OF SYSTEMS: Positive for nausea, vomiting, and diarrhea, otherwise as documented in HPI. All other systems have been reviewed and are negative. PAST MEDICAL HISTORY: Significant for hypothyroidism, hypertension, hyperlipidemia, GERD, osteoporos is, chronic back pain, lichen planus. FAMILY HISTORY: Reviewed and noncontributory to this visit. PAST SURGICAL HISTORY: The patient had hysterectomy, left cataract repair, cholecystectomy. PSYCHIATRIC HISTORY: Depression. SOCIAL HISTORY: Significant for tobacco use. The patient smokes about 2 packs per day. The patient denies alcohol or illicit drug use. The patient lives with a friend. ALLERGIES: PENICILLIN and SULFA. CURRENT MEDICATIONS: The patient is on levothyroxine 50 mcg, lisinopril 5 mg, amitriptyline 50 mg, g abapentin 600 t.i.d., omeprazole 20 mg, pravastatin 40 mg, aspirin 81 mg, diclofenac ophthalmic solut ion, vitamin D 3000 units, Tye 7.5/325 mg, Colcrys 0.6 mg, levofloxacin 500 mg. PHYSICAL EXAMINATION: VITAL SIGNS: Blood pressure is 134/78, pulse of 97, respiratory rate of 17, O2 saturation of 92. GENERAL: The patient is awake, alert, oriented x3, lying in bed on her left side, holding vomiting b ag. The patient has been spitting up, but able to speak in full sentences. HEENT: Normocephalic, atraumatic. Pupils are equally round and reactive to light. Extraocular move ments are intact. No sclerae icterus. Mucous membranes are dry. NECK: Trachea is midline. Full range of motion, supple. LUNGS: Clear to auscultation bilaterally. No wheezing, no rales, no rhonchi is appreciated. CARDIAC: Positive S1, S2, regular rate and rhythm. No murmurs, no gallops, no rubs appreciated. ABDOMEN: No peritoneal signs. Soft, nontender, nondistended. No peritoneal signs. Positive bowel sounds in all quadrants. EXTREMITIES: The patient has 5/5 upper extremity strength and 5/5 lower extremity strength. Good pu lses bilaterally of the upper and lower extremities. NEUROLOGIC: Cranial nerves II-XII grossly intact. No neurologic deficit noted. SKIN: Dry, intact. Poor skin turgor. EKG shows normal sinus rhythm, rate of 97. EMERGENCY DEPARTMENT COURSE: The patient received metronidazole, Phenergan, Levaquin, sodium chlorid e. LABORATORY DATA: 1. WBC 6.9, hemoglobin 14.8, hematocrit 46.5, platelet count is 319. 2. Sodium is 138, potassium is 3.7, chloride is 97, BUN is 4, creatinine is 0.67. Lactic acid of 1. 7, AST 71, ALT is 42, alkaline phosphatase 159. Troponin less than 0.010. Lipase of 13. Leukoester ase is trace. IMAGING: CT of the abdomen showed the patient has colitis. ASSESSMENT AND PLAN: This is a 67-year-old female being admitted for, 1. Colitis. The patient has been started on ciprofloxacin and Flagyl. We will continue the patient on Cipro and Flagyl. We will get GI consultation. We will make patient n.p.o. except for sips of w ater with her medications. 2. Hypothyroidism. We will continue patient on home medication. 3. Gastroesophageal reflux disease. We will continue patient on Pepcid. 4. Hypertension. We will monitor the patient's blood pressure. We will give patient blood pressure medications as necessary and needed. We will continue to monitor the patient's blood pressure. 5. Osteoporosis. We will continue patient on her current medications. 6. Chronic back pain. We will continue the patient on current medications. 7. Deep venous thrombosis and gastrointestinal prophylaxis.
[2018-06-12] MEDS ORDERED: Potassium Chloride 20 MEQ in Premix Bag 1 BAG IVPB SCH (07:00)
[2018-06-12] MEDS ORDERED: metroNIDAZOLE 500 MG in Premix Bag 1 BAG IVPB SCH (08:00)
[2018-06-12] MEDS ORDERED: Non-Formulary Item 1 EACH (Esomeprazole Magnesium [Nexium] 40 MG) PO SCH (08:00)
[2018-06-12] MEDS: metroNIDAZOLE 500 MG in Premix Bag 1 BAG IVPB SCH ×3 (08:50→23:00)
[2018-06-12] MEDS: Lisinopril 5 MG TAB PO SCH (08:51)
[2018-06-12] MEDS: Gabapentin 300 MG CAP PO SCH ×3 (08:51→20:41)
[2018-06-12] MEDS: Enoxaparin Sodium 40 MG/0.4 ML SYRINGE SC SCH (08:52)
[2018-06-12] MEDS ORDERED: Pravastatin Sodium 40 MG TAB PO SCH (09:00)
[2018-06-12] MEDS ORDERED: Lisinopril 5 MG TAB PO SCH (09:00)
[2018-06-12] MEDS ORDERED: Gabapentin 300 MG CAP PO SCH (09:00)
[2018-06-12] MEDS ORDERED: Potassium Chloride 20 MEQ TAB PO SCH (09:45)
--- NOTE | 2018-06-12 11:40 | PDOC.EVN ---
Event Note - Event Note Event Note: Pt seen and examined. still feels weak and has been having loose stools. not much abd pain Chart reviewed suspect CDiff. Will start PO vancomycin. Stool studies ordered. LFT elevation noted.CT abdomen reports that liver and spleen look normal and pt is s/p cholecystectomy HD stable. will follow
--- NOTE | 2018-06-12 12:57 | CON ---
GI INPATIENT CONSULTATION NOTE DATE OF CONSULTATION: 06/12/2018 REQUESTING PHYSICIAN: Dr. Tavera. REASON FOR CONSULTATION: Acute colitis. HISTORY OF PRESENT ILLNESS: Acacia Singh is a very pleasant 67-year-old woman, admitted to the [facility] yesterday for acute diarrhea and nausea over the past 8-9 days. The patient has a history of GERD which is fairly well-controlled on a daily PPI, no other significant past gastrointestinal history. She has never had a colonoscopy. She really has no chronic gastrointestinal symptomatology. She say s about 9 days ago, she had a fairly acute onset of watery diarrhea. Bowel movements are occurring 3 times a day, after most meals, and are quite urgent. There is no melena or hematochezia noted. The re is really no associated abdominal pain and no fever, though she has been nauseated and had a coupl e episodes of emesis, but the diarrhea is the predominant complaint. She saw her PCP 5 days ago and was actually diagnosed with bacterial pneumonia, started on levofloxacin, but she says she only took this for 3 days, and it seems the diarrhea symptoms preceded the antibiotics by a few days. Upon pre sentation to the hospital yesterday, she was found to have an elevated CK level. A CT of the abdomen and pelvis demonstrated mural thickening in the colon consistent with colitis, no other abnormalitie s. Stool studies have been ordered, but not yet collected. She is being treated now with ciprofloxa mary and metronidazole. ALLERGIES: PENICILLIN and SULFA. OUTPATIENT MEDICATIONS: Fosamax q.7 days, aspirin 81 mg daily, amitriptyline, gabapentin, diclofenac gel, colchicine, levothyroxine, levofloxacin, hydrocodone p.r.n., Zofran p.r.n., omeprazole, lisinop ril, pravastatin. FAMILY HISTORY: Noncontributory. SOCIAL HISTORY: She does smoke 2 packs of cigarettes per day. No alcohol or drug use. PAST MEDICAL HISTORY: Cholecystectomy, hysterectomy, cataract surgery, hypothyroidism, hypertension, hyperlipidemia, gastroesophageal reflux, osteoporosis, chronic back pain, Lichen planus, depression, ongoing tobacco abuse. PHYSICAL EXAMINATION: VITAL SIGNS: Temperature 98.1, pulse 100, blood pressure 129/84, 92% oxygen saturation on room air. GENERAL: A 67-year-old woman, lying in bed comfortably, in no distress, nontoxic. SKIN: No jaundice, no rash visible or palpable. EYES: No scleral icterus. Extraocular movements intact. ENT: Mucous membranes moist, no oral lesions. LYMPH: No submandibular, supraclavicular lymphadenopathy. THYROID: Nontender to palpation. HEART: Regular rate and rhythm. LUNGS: Some bibasilar crackles, no wheezing, no respiratory distress. ABDOMEN: Nondistended. Bowel sounds present, soft and nontender to palpation throughout. EXTREMITIES: No peripheral edema. VESSELS: Radial pulses 2+ bilaterally. NEUROLOGICAL: Cranial nerves II-XII intact bilaterally. No focal deficits. LABORATORY STUDIES: WBC 6.1, hemoglobin 11.8, platelets 263. Sodium 141, potassium 2.8, BUN less th an 4, creatinine 0.59, glucose 77, calcium 6.5. CK was 327, CK-MB only 3.3. Troponin negative. Tot al bilirubin 0.3, alkaline phosphatase 159, AST 71, ALT 42. Lactic acid only 1.2, lipase normal at 1 3, albumin 3.7. Urinalysis showed trace leukocyte esterase, otherwise negative. IMAGING STUDIES: CT of the abdomen and pelvis performed yesterday demonstrated abnormal enhancement of the colonic mucosa compatible with colitis, otherwise normal exam including the lung bases, liver and spleen and pancreas. Gallbladder is absent. ASSESSMENT AND PLAN: 1. Acute colitis. 2. Acute diarrhea over the past 8-9 days, secondary to acute colitis. The patient's presentation se ems most consistent with an acute infectious colitis. Note the recent antibiotic use. C. difficile is certainly a concern. Stool studies have not yet been collected. We will follow up on stool study results. Otherwise, continue with supportive care. I will give her a clear liquid diet today. We will go ahead and start her on Florastor as well. If the stool studies are all unrevealing and bothe rsome diarrhea persists, then we could consider diagnostic colonoscopy. She will need a colonoscopy for screening purposes at some point in the near future anyway, but I would certainly prefer for her to get over this likely infectious colitis first. So colonoscopy would probably be deferred to the o utpatient setting. Please call any time with questions or concerns.
[2018-06-12] MEDS ORDERED: Saccharomyces boulardii 250 MG CAP PO SCH (16:15)
[2018-06-12] MEDS: Nicotine 14 MG PATCH TOP SCH (17:56)
[2018-06-12] MEDS: Amitriptyline HCl 25 MG TAB PO SCH (20:41)
[2018-06-12] MEDS: Pravastatin Sodium 40 MG TAB PO SCH (20:41)
[2018-06-12] MEDS ORDERED: AMITRIPTYLINE HCL PO SCH (21:00)
[2018-06-12] MEDS: Acetaminophen 325 MG TAB PO PRN (22:58)
[2018-06-12] MEDS: Lorazepam 0.5 MG TAB PO PRN (22:59)
[2018-06-13] MEDS: Sodium Chloride 0.9% 1,000 ML IV SCH ×2 (03:19→20:37)
[2018-06-13 05:07] LABS: ALT (SGPT) 27 U/L (8-55); AST (SGOT) 46 U/L (5-34); Albumin 2.6 g/dL (3.4-4.8); Alkaline Phosphatase 95 U/L (40-150); Anion Gap 11 mmol/L (10-20); BUN (Urea Nitrogen) Less than 4 mg/dL (9.8-20.1); Bilirubin, Total 0.3 mg/dL (0.2-1.2); Calc. Creatinine Clearance 81 mL/min (70-130); Calcium 6.2 mg/dL (7.8-10.44); Carbon Dioxide 25 mmol/L (23-31); Chloride 106 mmol/L (98-107); Estimated GFR-MDRD Greater than 90; Globulin 1.8 g/dL (2.4-3.5); Glucose 70 mg/dL (80-115); Potassium 3.3 mmol/L (3.5-5.1); Protein, Total 4.4 g/dL (6.0-8.3); Sodium 139 mmol/L (136-145)
[2018-06-13] MEDS: Levothyroxine Sodium 50 MCG TAB PO SCH (05:38)
[2018-06-13] MEDS: metroNIDAZOLE 500 MG in Premix Bag 1 BAG IVPB SCH ×2 (08:19→15:44)
[2018-06-13] MEDS: Saccharomyces boulardii 250 MG CAP PO SCH (08:20)
[2018-06-13] MEDS: Lisinopril 5 MG TAB PO SCH (08:20)
[2018-06-13] MEDS: Gabapentin 300 MG CAP PO SCH ×3 (08:21→20:35)
[2018-06-13] MEDS: Enoxaparin Sodium 40 MG/0.4 ML SYRINGE SC SCH (08:22)
[2018-06-13] MEDS ORDERED: Potassium Chloride 20 MEQ TAB PO SCH (08:45)
--- NOTE | 2018-06-13 10:42 | PDOC.PN ---
- Subjective Encounter Start Date: 06/13/18 Encounter Start Time: 10:40 Subjective: feels better. 2 Loose BM since yesterday -: wants to eat.no abd pain/N/V - Objective Resuscitation Status: Resuscitation Status FULL:Full Resuscitation MAR Reviewed: Yes Vital Signs & Weight: Vital Signs (12 hours) Temp Pulse Resp BP BP Pulse Ox 06/13/18 08:20 98 118/71 06/13/18 08:00 94 L 06/13/18 07:51 97.8 F 98 11871 94 L 06/13/18 05:18 96 Weight Admit Weight 118 lb 3.2 oz Weight 116 lb 13.943 oz I&O: 06/12/18 06/13/18 06/14/18 07:59 06:59 06:59 Intake Total Balance Result Diagrams: 06/12/18 04:43 06/13/18 04:25 Additional Labs: Microbiology 06/12/18 15:00 Stool - Liquid Campylobacter Antigen Assay - Final 06/12/18 15:00 Stool - Liquid Shiga Toxin Test - Final 06/12/18 15:00 Stool C. difficile GDH Antigen & Toxins - Final 06/12/18 15:00 Stool - Liquid Stool Culture - Preliminary 06/11/18 21:04 Venous blood - Right Arm Blood Culture - Preliminary Specimen has been received and culture in progress. No Growth to date. 06/11/18 21:04 Venous blood - Left Arm Blood Culture - Preliminary Specimen has been received and culture in progress. No Growth to date. Laboratory Tests 03/13/18 06/11/18 12:48 21:08 AST 10 71 H Phys Exam - Physical Examination Constitutional: NAD HEENT: PERRLA, moist MMs, sclera anicteric, oral pharynx no lesions Neck: no nodes, no JVD, supple, full ROM Respiratory: no wheezing, no rales, no rhonchi, clear to auscultation bilateral Cardiovascular: RRR, no significant murmur, no rub Gastrointestinal: soft, non-tender, no distention, positive bowel sounds Musculoskeletal: no edema, pulses present Neurological: non-focal, normal sensation, moves all 4 limbs Psychiatric: normal affect, A&O x 3 Skin: no rash Dx/Plan (1) Gastroenteritis Code(s): K52.9 - NONINFECTIVE GASTROENTERITIS AND COLITIS, UNSPECIFIED Status : Acute (2) Hypothyroidism Code(s): E03.9 - HYPOTHYROIDISM, UNSPECIFIED Status: Chronic (3) HTN (hypertension) Code(s): I10 - ESSENTIAL (PRIMARY) HYPERTENSION Status: Chronic (4) HLD (hyperlipidemia) Code(s): E78.5 - HYPERLIPIDEMIA, UNSPECIFIED Status: Chronic - Plan continue antibiotics, out of bed/ambulate, DVT proph w/SCDs clincally better.CDiff,stool studies negative so far -: advance diet.IVF -: DC home in next 24 hrs if no procedures per GI * . Review of Systems - Review of Systems Constitutional: weakness. negative: fever, chills, sweats, malaise, other Eyes: negative: Pain, Vision Change, Conjunctivae Inflammation, Eyelid Inflammation, Redness, Other ENT: negative: Ear Pain, Ear Discharge, Nose Pain, Nose Discharge, Nose Congestion, Mouth Pain, Mouth Swelling, Throat Pain, Throat Swelling, Other Respiratory: negative: Cough, Dry, Shortness of Breath, Hemoptysis, SOB with Excertion, Pleuritic Pain, Sputum, Wheezing Cardiovascular: negative: chest pain, palpitations, orthopnea, paroxysmal nocturnal dyspnea, edema, light headedness, other Gastrointestinal: Diarrhea. negative: Nausea, Vomiting, Abdominal Pain, Constipation, Melena, Hematochezia, Other Genitourinary: negative: Dysuria, Frequency, Incontinence, Hematuria, Retention , Other Musculoskeletal: negative: Neck Pain, Shoulder Pain, Arm Pain, Back Pain, Hand Pain, Leg Pain, Foot Pain, Other Neurological: negative: Weakness, Numbness, Incoordination, Change in Speech, Confusion, Seizures, Other - Medications/Allergies Allergies/Adverse Reactions: Allergies Allergy/AdvReac Type Severity Reaction Status Date / Time Penicillins Allergy Verified 01/25/13 21:43 sulfacetamide sodium Allergy Verified 01/25/13 21:44 [From Sulfamide] Medications: Current Medications Acetaminophen (Tylenol) 650 mg PO Q4H PRN PRN Reason: Headache/Fever/Mild Pain (1-3) Last Admin: 06/12/18 22:58 Dose: 650 mg Amitriptyline HCl (Elavil) 50 mg PO HS [facility] Last Admin: 06/12/18 20:41 Dose: 50 mg Aspirin (Aspirin Chewable) 81 mg PO DAILY [facility] Last Admin: 06/13/18 08:20 Dose: 81 mg Clobetasol Propionate (Temovate 0.05% Cream) 0 gm TOP DAILYPRN PRN PRN Reason: Pain Enoxaparin Sodium (Lovenox) 40 mg SC 0900 [facility] Last Admin: 06/13/18 08:22 Dose: Not Given Gabapentin (Neurontin) 300 mg PO TID [facility] Last Admin: 06/13/18 08:21 Dose: 300 mg Sodium Chloride (Normal Saline 0.9%) 1,000 mls @ 70 mls/hr IV .[id number] [facility] Last Admin: 06/13/18 03:19 Dose: 1,000 mls Ciprofloxacin/Dextrose 400 mg/ (Device) 200 mls @ 200 mls/hr IVPB Q12HR [facility] Last Admin: 06/13/18 08:20 Dose: 200 mls Metronidazole 500 mg/ Device 100 mls @ 200 mls/hr IVPB [id number] [facility] Last Admin: 06/13/18 08:19 Dose: 100 mls Levothyroxine Sodium (Synthroid) 50 mcg PO 0600 [facility] Last Admin: 06/13/18 05:38 Dose: 50 mcg Lisinopril (Zestril) 5 mg PO DAILY [facility] Last Admin: 06/13/18 08:20 Dose: 5 mg Lorazepam (Ativan) 0.5 mg PO DAILYPRN PRN PRN Reason: Anxiety Last Admin: 06/12/18 22:59 Dose: 0.5 mg Nicotine (Nicoderm Patch) 14 mg TOP Q24HR [facility] Last Admin: 06/12/18 17:56 Dose: 14 mg Pantoprazole Sodium (Protonix) 40 mg PO DAILY [facility] Last Admin: 06/13/18 08:20 Dose: 40 mg Pravastatin Sodium (Pravachol) 40 mg PO HS [facility] Last Admin: 06/12/18 20:41 Dose: 40 mg Saccharomyces Boulardii (Florastor) 250 mg PO DAILY [facility] Last Admin: 06/13/18 08:20 Dose: 250 mg Sodium Chloride (Flush - Normal Saline) 10 ml IVF Q12HR [facility] Last Admin: 06/13/18 08:22 Dose: 10 ml Sodium Chloride (Flush - Normal Saline) 10 ml IVF PRN PRN PRN Reason: Saline Flush
--- NOTE | 2018-06-13 11:16 | PRG ---
DATE OF SERVICE: 06/13/2018 GI INPATIENT DAILY PROGRESS NOTE SUBJECTIVE: Mrs. Singh is feeling pretty well. No nausea or vomiting or abdominal pain. She has akbar d one loose bowel movement so far today. Tolerating her diet. No other complaints. PHYSICAL EXAMINATION: VITAL SIGNS: Temperature 97.8, pulse 98, blood pressure 118/71, 94% oxygen saturation on room air. GENERAL: No acute distress. HEART: Regular rate and rhythm. LUNGS: Clear to auscultation bilaterally. ABDOMEN: Soft and nontender to palpation. EXTREMITIES: No peripheral edema. LABORATORY STUDIES: Sodium 139, potassium 3.3, BUN less than 4, creatinine 0.56. Total bilirubin 0. 3, alkaline phosphatase 95, AST 46, ALT 27. Stool studies are negative for C. difficile. Stool cult ure preliminary result shows rare normal enteric ace. Campylobacter and Shiga toxin are negative. Fecal lactoferrin is elevated. ASSESSMENT AND PLAN: 1. Acute colitis. 2. Acute diarrhea. I am still favoring acute infectious diarrhea in this case. I am still inclined to give this some more time to resolve prior to considering endoscopic investigation. I think if mercy pisano is doing well over the next day, she could potentially be discharged from the hospital and follow u p closely in my clinic in the next 1-2 weeks. If bothersome diarrhea is persistent at that time, we will schedule her for diagnostic colonoscopy. If diarrhea has resolved, we would still need to get h er set up for screening colonoscopy at some point. I think the patient could safely take Imodium on an as needed basis. Would continue her on a daily probiotic as well. Please call at any time with questions or concerns.
[2018-06-13] MEDS: Acetaminophen 325 MG TAB PO PRN (17:45)
[2018-06-13] MEDS: Dicyclomine 10 MG CAP PO PRN (17:45)
[2018-06-13] MEDS: Nicotine 14 MG PATCH TOP SCH (17:45)
[2018-06-13] MEDS: Amitriptyline HCl 25 MG TAB PO SCH (20:35)
[2018-06-13] MEDS: Pravastatin Sodium 40 MG TAB PO SCH (20:36)
[2018-06-13] MEDS ORDERED: Dicyclomine 10 MG CAP PO SCH (21:00)
[2018-06-14] MEDS: Acetaminophen 325 MG TAB PO PRN
[2018-06-14] MEDS: HYDROcodone/Acetaminophen 7.5/325 mg Tablet PO PRN ×4 (02:17→22:12)
[2018-06-14 05:08] LABS: Anion Gap 8 mmol/L (10-20); BUN (Urea Nitrogen) Less than 4 mg/dL (9.8-20.1); Calc. Creatinine Clearance 83 mL/min (70-130); Calcium 6.6 mg/dL (7.8-10.44); Carbon Dioxide 30 mmol/L (23-31); Chloride 107 mmol/L (98-107); Estimated GFR-MDRD Greater than 90; Glucose 98 mg/dL (80-115); Potassium 3.5 mmol/L (3.5-5.1); Sodium 141 mmol/L (136-145)
[2018-06-14] MEDS: Levothyroxine Sodium 50 MCG TAB PO SCH (05:31)
[2018-06-14] MEDS: metroNIDAZOLE 500 MG in Premix Bag 1 BAG IVPB SCH ×4 (07:57→23:14)
[2018-06-14] MEDS: Enoxaparin Sodium 40 MG/0.4 ML SYRINGE SC SCH ×2 (07:58→08:06)
[2018-06-14] MEDS: Lisinopril 5 MG TAB PO SCH (07:58)
[2018-06-14] MEDS: Saccharomyces boulardii 250 MG CAP PO SCH (07:59)
[2018-06-14] MEDS: Gabapentin 300 MG CAP PO SCH ×3 (07:59→20:49)
--- NOTE | 2018-06-14 09:29 | PRG ---
DATE OF SERVICE: 06/14/2018 SUBJECTIVE: Ms. Singh has had some improvement in her diarrhea. She had 1 bowel movement yesterday morning and now another bowel movement this morning which seems a bit more solid, though still urgent . Her primary complaint remains chronic back pain. She is tolerating her diet with no nausea or vom iting. OBJECTIVE: VITAL SIGNS: Temperature 97.7, pulse 84, blood pressure 123/71, 96% oxygen saturation on room air. GENERAL: No acute distress. HEART: Regular rate and rhythm. LUNGS: Clear to auscultation bilaterally. ABDOMEN: Bowel sounds present, soft and nontender to palpation. EXTREMITIES: No peripheral edema. LABORATORY STUDIES: Sodium 141, potassium 3.5, BUN less than 4, creatinine 0.54. ASSESSMENT AND PLAN: 1. Acute colitis, slowly clinically improving. 2. Acute diarrhea, clinically improving. My impression remains that this likely represents an acute infectious process which is taking some ti me to resolve. I think from a GI standpoint, she could be discharged from the hospital. We will hav e her follow up closely in our clinic in the next 1-2 weeks. If bothersome diarrhea symptoms persist , then we will get her scheduled for diagnostic colonoscopy. If the diarrhea has significantly impro livier, we would schedule her for screening colonoscopy. In the meantime, she can safely take Imodium o n an as needed basis. Continue daily, Probiotic. Please call any time with questions or concerns.
[2018-06-14] MEDS: Calcium Carbonate 500 MG ChewTAB PO SCH ×3 (09:45→20:55)
--- NOTE | 2018-06-14 12:42 | PDOC.PN ---
- Subjective Encounter Start Date: 06/14/18 Encounter Start Time: 12:40 Subjective: has been having multiple episodes of loose stools & vomited breakfast today - Objective Resuscitation Status: Resuscitation Status FULL:Full Resuscitation MAR Reviewed: Yes Vital Signs & Weight: Vital Signs (12 hours) Temp Pulse Resp BP BP Pulse Ox 06/14/18 07:58 84 123/71 06/14/18 06:59 97.7 F 84 20 123/71 96 Weight Admit Weight 118 lb 3.2 oz Weight 121 lb 4 oz I&O: 06/13/18 06/14/18 06/15/18 06:59 06:59 06:59 Intake Total 1370 Balance 1370 Result Diagrams: 06/12/18 04:43 06/14/18 04:30 Additional Labs: Microbiology 06/12/18 15:00 Stool - Liquid Stool Lactoferrin - Final 06/12/18 15:00 Stool - Liquid Campylobacter Antigen Assay - Final 06/12/18 15:00 Stool - Liquid Shiga Toxin Test - Final 06/12/18 15:00 Stool C. difficile GDH Antigen & Toxins - Final 06/12/18 15:00 Stool - Liquid Stool Culture - Preliminary 06/11/18 21:04 Venous blood - Right Arm Blood Culture - Preliminary NO GROWTH AT 48 HOURS 06/11/18 21:04 Venous blood - Left Arm Blood Culture - Preliminary NO GROWTH AT 48 HOURS Laboratory Tests 03/13/18 06/11/18 06/13/18 12:48 21:08 04:25 Alkaline Phosphatase 110 159 H 95 Phys Exam - Physical Examination Constitutional: NAD HEENT: PERRLA, moist MMs, sclera anicteric, oral pharynx no lesions Neck: no nodes, no JVD, supple, full ROM Respiratory: no wheezing, no rales, no rhonchi, clear to auscultation bilateral Cardiovascular: RRR, no significant murmur, no rub Gastrointestinal: soft, non-tender, no distention, positive bowel sounds Musculoskeletal: no edema, pulses present Neurological: non-focal, normal sensation, moves all 4 limbs Psychiatric: normal affect, A&O x 3 Skin: no rash Dx/Plan (1) Gastroenteritis Code(s): K52.9 - NONINFECTIVE GASTROENTERITIS AND COLITIS, UNSPECIFIED Status : Acute Comment: Stool studies Negative (2) Hypothyroidism Code(s): E03.9 - HYPOTHYROIDISM, UNSPECIFIED Status: Chronic (3) HTN (hypertension) Code(s): I10 - ESSENTIAL (PRIMARY) HYPERTENSION Status: Chronic (4) HLD (hyperlipidemia) Code(s): E78.5 - HYPERLIPIDEMIA, UNSPECIFIED Status: Chronic - Plan continue antibiotics, PT/OT, DVT proph w/SCDs Cont IVF,IV ABx.add prn Imodium.prn bentyl -: mahnaz MCKEE in next 24 hours w OP GI F/U -: apprecite GI input * . Review of Systems - Review of Systems Constitutional: weakness, malaise. negative: fever, chills, sweats, other ENT: negative: Ear Pain, Ear Discharge, Nose Pain, Nose Discharge, Nose Congestion, Mouth Pain, Mouth Swelling, Throat Pain, Throat Swelling, Other Respiratory: negative: Cough, Dry, Shortness of Breath, Hemoptysis, SOB with Excertion, Pleuritic Pain, Sputum, Wheezing Cardiovascular: negative: chest pain, palpitations, orthopnea, paroxysmal nocturnal dyspnea, edema, light headedness, other Gastrointestinal: Vomiting, Abdominal Pain, Diarrhea. negative: Nausea, Constipation, Melena, Hematochezia, Other Genitourinary: negative: Dysuria, Frequency, Incontinence, Hematuria, Retention , Other Musculoskeletal: negative: Neck Pain, Shoulder Pain, Arm Pain, Back Pain, Hand Pain, Leg Pain, Foot Pain, Other Neurological: negative: Weakness, Numbness, Incoordination, Change in Speech, Confusion, Seizures, Other - Medications/Allergies Allergies/Adverse Reactions: Allergies Allergy/AdvReac Type Severity Reaction Status Date / Time Penicillins Allergy Verified 01/25/13 21:43 sulfacetamide sodium Allergy Verified 01/25/13 21:44 [From Sulfamide] Medications: Current Medications Acetaminophen (Tylenol) 650 mg PO Q4H PRN PRN Reason: Headache/Fever/Mild Pain (1-3) Last Admin: 06/14/18 00:00 Dose: 650 mg Hydrocodone Bitart/Acetaminophen (Samson 7.5/325) 1 tab PO Q8H PRN PRN Reason: Severe Pain (7-10) Last Admin: 06/14/18 09:45 Dose: 1 tab Amitriptyline HCl (Elavil) 50 mg PO HS [facility]ADYS Last Admin: 06/13/18 20:35 Dose: 50 mg Aspirin (Aspirin Chewable) 81 mg PO DAILY [facility] Last Admin: 06/14/18 07:58 Dose: 81 mg Calcium Carbonate (Tums) 1,000 mg PO BID [facility] Last Admin: 06/14/18 09:45 Dose: 1,000 mg Clobetasol Propionate (Temovate 0.05% Cream) 0 gm TOP DAILYPRN PRN PRN Reason: Pain Dicyclomine HCl (Bentyl) 10 mg PO QID PRN PRN Reason: CRAMPS Last Admin: 06/13/18 17:45 Dose: 10 mg Enoxaparin Sodium (Lovenox) 40 mg SC 0900 [facility] Last Admin: 06/14/18 08:06 Dose: Not Given Gabapentin (Neurontin) 300 mg PO TID [facility] Last Admin: 06/14/18 07:59 Dose: 300 mg Sodium Chloride (Normal Saline 0.9%) 1,000 mls @ 70 mls/hr IV .[id number] [facility] Last Admin: 06/13/18 20:37 Dose: 1,000 mls Ciprofloxacin/Dextrose 400 mg/ (Device) 200 mls @ 200 mls/hr IVPB Q12HR [facility] Last Admin: 06/14/18 08:00 Dose: 200 mls Metronidazole 500 mg/ Device 100 mls @ 200 mls/hr IVPB 0800,1600,[id number] [facility] Last Admin: 06/14/18 07:57 Dose: 100 mls Levothyroxine Sodium (Synthroid) 50 mcg PO 0600 [facility] Last Admin: 06/14/18 05:31 Dose: 50 mcg Lisinopril (Zestril) 5 mg PO DAILY [facility] Last Admin: 06/14/18 07:58 Dose: 5 mg Loperamide HCl (Imodium) 1 mg PO Q4H PRN PRN Reason: Diarrhea/Loose Stools Lorazepam (Ativan) 0.5 mg PO DAILYPRN PRN PRN Reason: Anxiety Last Admin: 06/12/18 22:59 Dose: 0.5 mg Nicotine (Nicoderm Patch) 14 mg TOP Q24HR [facility] Last Admin: 06/13/18 17:45 Dose: 14 mg Pantoprazole Sodium (Protonix) 40 mg PO DAILY [facility] Last Admin: 06/14/18 07:59 Dose: 40 mg Pravastatin Sodium (Pravachol) 40 mg PO HS [facility] Last Admin: 06/13/18 20:36 Dose: 40 mg Saccharomyces Boulardii (Florastor) 250 mg PO DAILY [facility] Last Admin: 06/14/18 07:59 Dose: 250 mg Sodium Chloride (Flush - Normal Saline) 10 ml IVF Q12HR [facility] Last Admin: 06/14/18 08:00 Dose: Not Given Sodium Chloride (Flush - Normal Saline) 10 ml IVF PRN PRN PRN Reason: Saline Flush
[2018-06-14] MEDS: Dicyclomine 10 MG CAP PO PRN ×2 (14:05→20:55)
[2018-06-14] MEDS: Sodium Chloride 0.9% 1,000 ML IV SCH (14:06)
[2018-06-14 14:39] VITALS: BMI 20.8
[2018-06-14] MEDS: Nicotine 14 MG PATCH TOP SCH (17:35)
[2018-06-14] MEDS: Amitriptyline HCl 25 MG TAB PO SCH (20:48)
[2018-06-14] MEDS: Pravastatin Sodium 40 MG TAB PO SCH (20:49)
[2018-06-15] MEDS: Lorazepam 0.5 MG TAB PO PRN (00:37)
[2018-06-15] MEDS: Sodium Chloride 0.9% 1,000 ML IV SCH (00:38)
[2018-06-15] MEDS: Levothyroxine Sodium 50 MCG TAB PO SCH (06:16)
[2018-06-15 07:44] VITALS: TEMP 98.2
[2018-06-15] MEDS: Calcium Carbonate 500 MG ChewTAB PO SCH (08:31)
[2018-06-15] MEDS: Saccharomyces boulardii 250 MG CAP PO SCH (08:31)
[2018-06-15] MEDS: Gabapentin 300 MG CAP PO SCH (08:31)
[2018-06-15] MEDS: Lisinopril 5 MG TAB PO SCH (08:32)
[2018-06-15] MEDS: metroNIDAZOLE 500 MG in Premix Bag 1 BAG IVPB SCH (08:34)
[2018-06-15] MEDS: Enoxaparin Sodium 40 MG/0.4 ML SYRINGE SC SCH (08:34)
[2018-06-15] MEDS: HYDROcodone/Acetaminophen 7.5/325 mg Tablet PO PRN (08:36)
[2018-06-15 08:37] VITALS: BP 122/76
== END 2018-06-15 16:15 | disposition home or self-care (01) | DRG 392 ==
LOC: ERS 20:22 → T4-A 06-12 00:22
PROVIDERS: ADMIT Internal Medicine; ATTEND Internal Medicine
DX: A09 Infectious gastroenteritis and colitis, unspecified (principal); E03.9 Hypothyroidism, unspecified; K21.9 Gastro-esophageal reflux disease without esophagitis; E78.5 Hyperlipidemia, unspecified; I10 Essential (primary) hypertension; M81.0 Age-related osteoporosis without current pathological fracture; G89.29 Other chronic pain; F32.9 Major depressive disorder, single episode, unspecified; F17.210 Nicotine dependence, cigarettes, uncomplicated; Z88.0 Allergy status to penicillin; Z88.2 Allergy status to sulfonamides; Z79.82 Long term (current) use of aspirin; Z90.49 Acquired absence of other specified parts of digestive tract
CPT/HCPCS: 36415; 74177; 80048; 80053; 81003; 81015; 82550; 82553; 83605; 83630; 83690; 84484; 85025; 87040; 87045; 87046; 87324; 87449; 87899; 93005; 96361; 96365; 96366; 96375; J0744; J1650; J1956; J2405; J2550; J3480

== ENCOUNTER 2018-07-14 20:56 | Emergency (ER) | payer MEDICARE ==
[2018-07-14] MEDS ORDERED: Ondansetron PF 4 MG/2 ML Vial ONE (21:36)
[2018-07-14 22:26] LABS: #Basophils 0.2 thou/uL (0.0-0.2); #Eosinphils 0.1 thou/uL (0.0-0.7); #Monocytes 0.3 thou/uL (0.11-0.59); #Neutrophils 4.6 thou/uL (1.40-6.50); %Basophils 2.4 % (0.0-1.0); %Eosinophils 0.7 % (0.0-10.0); %Lymphocytes 28.2 % (21.0-51.0); %Monocytes 4.7 % (0.0-10.0); Hemoglobin 16.1 g/dL (12.0-16.0); Mean Corpuscular Hemoglobin 29.6 pg (27.0-31.0); Mean Corpuscular Volume 92.6 fL (78.0-98.0); Mean Platelet Volume 7.8 fL (7.4-10.4); Platelet Count 372 thou/uL (130-400); RBC Distribution Width 15.3 % (11.5-14.5); Red Blood Cell (RBC) Count 5.43 mill/uL (4.20-5.40); White Blood Cell (WBC) Count 7.2 thou/uL (4.8-10.8)
[2018-07-14 22:36] LABS: Bilirubin Negative (Negative); Blood, Urine Trace (Negative); Clarity CLOUDY (Clear); Glucose, Urine (Dipstick) Negative (Negative); Leukocyte Large (Negative); Nitrite Positive (Negative); Protein, Urine (Dipstick) Negative (Neg-Trace); Specific Gravity, Urine 1.003 (1.002-1.036); Urobilinogen 0.2 mg/dL (0.2-1.0)
[2018-07-14 22:40] LABS: Bacteria/HPF 4+ HPF (None Seen); Hyaline Casts/LPF 0-3 HYALINE CAST LPF (0-3 Hyaline); Pathc Cast-AUWi Flag 0.29 (0-2.49); RBC/HPF 0-3 HPF (0-3); Squamous Epithelial 0-3 HPF (0-3)
[2018-07-14 22:46] LABS: ALT (SGPT) 12 U/L (8-55); AST (SGOT) 20 U/L (5-34); Albumin 3.9 g/dL (3.4-4.8); Alkaline Phosphatase 134 U/L (40-150); Anion Gap 14 mmol/L (10-20); BUN (Urea Nitrogen) 8 mg/dL (9.8-20.1); Bilirubin, Total 0.4 mg/dL (0.2-1.2); Calc. Creatinine Clearance 0 mL/min (70-130); Calcium 9.3 mg/dL (7.8-10.44); Carbon Dioxide 27 mmol/L (23-31); Chloride 100 mmol/L (98-107); Estimated GFR-MDRD 90; Globulin 3.2 g/dL (2.4-3.5); Glucose 97 mg/dL (80-115); Lipase 12 U/L (8-78); Potassium 4.2 mmol/L (3.5-5.1); Protein, Total 7.1 g/dL (6.0-8.3); Sodium 137 mmol/L (136-145)
[2018-07-14] MEDS ORDERED: cefTRIAXone\\ROCEPHIN 1 GM VIAL ONE (22:51)
[2018-07-15] MEDS ORDERED: HYDROcodone/Acetaminophen 7.5/325 mg Tablet ONE (00:33)
[2018-07-15] MEDS ORDERED: Ondansetron PF 4 MG/2 ML Vial ONE (00:33)
== END 2018-07-15 00:55 | disposition home or self-care (01) ==
LOC: ERS 20:56
DX: K52.9 Noninfective gastroenteritis and colitis, unspecified (principal); E03.9 Hypothyroidism, unspecified; K21.9 Gastro-esophageal reflux disease without esophagitis; E78.5 Hyperlipidemia, unspecified; I10 Essential (primary) hypertension; M81.0 Age-related osteoporosis without current pathological fracture; F32.9 Major depressive disorder, single episode, unspecified; F17.210 Nicotine dependence, cigarettes, uncomplicated; Z79.899 Other long term (current) drug therapy; Z79.82 Long term (current) use of aspirin
CPT/HCPCS: 36415; 80053; 81003; 81015; 83605; 83690; 84484; 85025; 87045; 87046; 87077; 87086; 87186; 87324; 87449; 87899; 96361; 96365; 96375; 96376; J0696; J2405

== ENCOUNTER 2018-11-12 22:08 | Inpatient (IN) | payer MEDICARE ==
--- NOTE | 2018-11-12 23:13 | RAD ---
FExam: Chest one view HISTORY:Pain Comparison: None FINDINGS: Lungs: Hyperinflated Cardiac silhouette:Enlarged Pulmonary vessels: Normal Pleural Spaces: Clear Pneumothorax: None Osseous abnormalities: None of acuity. IMPRESSION: COPD CHF
[2018-11-12] MEDS ORDERED: traMADol HCl 50 MG TAB PO PRN (23:19)
[2018-11-12] MEDS ORDERED: HumaLOG 300 UNITS/3 ML VIAL SC PRN (23:21)
[2018-11-12] MEDS ORDERED: Ondansetron PF 4 MG/2 ML Vial IVP PRN (23:21)
[2018-11-12] MEDS ORDERED: Ondansetron ODT 4 MG TAB PO PRN (23:21)
[2018-11-12] MEDS ORDERED: Dextrose 5% in Water 1,000 ML IV PRN (23:21)
[2018-11-12] MEDS ORDERED: Morphine 4 MG/ML VIAL SLOW IVP PRN (23:21)
[2018-11-12] MEDS ORDERED: Dextrose 50% Abboject 50 ML SYRINGE SLOW IVP PRN (23:21)
[2018-11-12] MEDS ORDERED: hydrALAZINE 20 MG/ML VIAL SLOW IVP PRN (23:21)
[2018-11-12 23:44] LABS: #Basophils 0.1 thou/uL (0.0-0.2); #Lymphocytes 1.1 thou/uL (1.20-3.40); #Monocytes 0.4 thou/uL (0.11-0.59); #Neutrophils 8.3 thou/uL (1.40-6.50); %Basophils 0.7 % (0.0-1.0); %Eosinophils 0.2 % (0.0-10.0); %Lymphocytes 11.5 % (21.0-51.0); %Neutrophils 83.6 % (42.0-75.0); Hemoglobin 14.5 g/dL (12.0-16.0); Mean Corpuscular HGB CONC 31.9 g/dL (32.0-36.0); Mean Corpuscular Volume 97.2 fL (78.0-98.0); Mean Platelet Volume 8.7 fL (7.4-10.4); Platelet Count 211 thou/uL (130-400); Red Blood Cell (RBC) Count 4.69 mill/uL (4.20-5.40); White Blood Cell (WBC) Count 9.9 thou/uL (4.8-10.8)
[2018-11-12] MEDS ORDERED: traMADol HCl 50 MG TAB ONE (23:47)
[2018-11-13 00:01] LABS: INR-International Normal Ratio 0.9; PTT 25.4 SEC (22.9-36.1); Prothrombin Time 12.3 SEC (12.0-14.7)
[2018-11-13 00:03] LABS: ALT (SGPT) 34 U/L (8-55); AST (SGOT) 40 U/L (5-34); Albumin 3.7 g/dL (3.4-4.8); Alkaline Phosphatase 155 U/L (40-150); Anion Gap 15 mmol/L (10-20); BUN (Urea Nitrogen) 9 mg/dL (9.8-20.1); Bilirubin, Total 0.7 mg/dL (0.2-1.2); Calc. Creatinine Clearance 0 mL/min (70-130); Calcium 9.1 mg/dL (7.8-10.44); Carbon Dioxide 25 mmol/L (23-31); Chloride 99 mmol/L (98-107); Estimated GFR-MDRD Greater than 90; Globulin 2.7 g/dL (2.4-3.5); Glucose 91 mg/dL (80-115); Potassium 4.4 mmol/L (3.5-5.1); Protein, Total 6.4 g/dL (6.0-8.3); Sodium 135 mmol/L (136-145)
[2018-11-13] MEDS ORDERED: methylPREDNISolone Sod Succ/PF 125 MG/2 ML VIAL IVP SCH (00:15)
[2018-11-13] MEDS: Sodium Chloride 0.9% 1,000 ML IV SCH ×3 (02:08→18:24)
--- NOTE | 2018-11-13 02:34 | HP ---
Trauma Surgeon: Dr Bains TRAUMA ACTIVATION: Not applicable. HISTORY OF PRESENT ILLNESS: Acacia Singh is a 68-year-old female who presented to [facility] Emergency Room status post fall as a transfer from [facility]. 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 Patient denies any head trauma or loss of consciousness. She denied chest pain or shortness of breath. She denies palpitations. The patient reports that over the last 6 months, her blood pressure has been borderline low, but her primary care physician has insisted remaining on her home dose of lisinopril. Furthermore, the patient reports approximately a week long history of increasing congestion and increased sputum production. Upon review of the records from [place] [facility], the patient was hypoxic with an O2 saturation of 88% on room air and a systolic blood pressure of approximately 90. While in the [place] emergency room, she was seen, evaluated, and found to have a hip fracture. She was transferred to [facility] for further evaluation and care. Orthopedic Surgery was notified and Trauma Services was asked to admit. Upon my evaluation in the ER the patient is currently on 2-4 L nasal cannula and has a systolic blood pressure in the 120s ALLERGIES: PENICILLINS, SULFACETAMIDE. HOME MEDICATIONS: Include: 1. Synthroid 50 mcg. 2. Lisinopril 5 mg. 3. Amitriptyline 50 mg. 4. Gabapentin 300 mg t.i.d. 5. Omeprazole 20 mg HS. 6. Pravastatin 40 mg. 7. Aspirin 81 mg. 8. Diclofenac drops. 9. Monahans 7.5/325 t.i.d. p.r.n. 10. Colcrys 0.6 mg b.i.d. 11. Forteo 20 mcg daily. CHRONIC MEDICAL ILLNESSES: Include osteoporosis, hypothyroidism, GERD, lichen planus, and chronic back pain from lumbar and thoracic fractures. PAST SURGICAL HISTORY: Hysterectomy, cholecystectomy, appendectomy. SOCIAL HISTORY: The patient lives with friends. She ambulates with the use of a cane. Denies alcohol and illicit drug use. She is a current smoker, 1 pack per day x45 years. FAMILY HISTORY: The patient denies any family history of any medical illnesses. REVIEW OF SYSTEMS: The remaining 10-point review of systems was performed and negative except as indicated in the HPI. PHYSICAL EXAMINATION: VITAL SIGNS: On presentation include blood pressure of 115/65, pulse 90, respirations 16, O2 sats 86% on room air, currently 94% on 4 L nasal cannula. GENERAL: Elderly appearing female, in no acute distress, resting in bed. HEENT: Head is normocephalic, atraumatic. Eyes, pupils are PERRL. Extraocular movements are intact. NECK: Supple. Trachea is midline. CHEST: Atraumatic. Nontender to palpation. LUNGS: Sounds are diminished bilaterally with some coarse rhonchi, left greater than right. CARDIOVASCULAR: Regular rate and rhythm. No obvious murmurs, rubs, or gallops. GASTROINTESTINAL: Abdomen is atraumatic, soft, nontender, nondistended. MUSCULOSKELETAL: Bilateral upper extremities within normal limits. Right lower extremity is shortened. Pulses are 2+ bilaterally. Right lower extremity range of motion is limited secondary to pain. NEUROLOGIC: GCS is 15. No focal deficit is noted. LABORATORY FINDINGS: WBCs 9.9, hemoglobin 14.5, hematocrit 45.6, platelet count 211. Chemistry: PT/INR are pending. RADIOGRAPHIC FINDINGS: Chest x-ray with cardiomegaly, hyperinflated lungs and coarse interstitial prominent markings bilaterally. Hip x-ray from [facility] demonstrated a subcapital proximal right femur fracture per radiology read. ASSESSMENT: 1. Status post fall. 2. Right subcapital hip fracture. 3. Acute hypoxic respiratory failure, questionable chronic component given patient's long smoking history. 4. Possible chronic obstructive pulmonary disease exacerbation. 5. History of hypothyroidism. 6. History of hypertension, now with hypotension. PLAN: Admit to Trauma Services. The patient should have orthostatic vital signs completed. Hold antihypertensives. Hospital Medicine consult for preoperative clearance. Perioperative pain management with p.o. and IV analgesics. Postoperative PT and OT. The patient has been discussed with Orthopedic surgery who hopes for operative intervention tomorrow. DVT and gastritis prophylaxis as appropriate. The patient has been discussed with trauma attending. Further plan to be delineated when she has seen and evaluated the patient. Plan for admission was discussed with the patient at bedside and all questions were answered prior to this dictation. Of note, the patient reports that her medical power of attorney recruiter is her daughter, Camryn Cortes. She further states that in the event of a cardiac arrest or respiratory arrest, she does not wish to have any chest compressions, defibrillation medications, or intubation. Therefore, she is a do not resuscitate. She states that her daughter is aware of her wishes. This will be reflected in her orders. Job ID: [id number] MTDD
[2018-11-13 02:56] VITALS: BMI 17.4
[2018-11-13 03:09] LABS: Bilirubin Negative (Negative); Blood, Urine Negative (Negative); Clarity CLEAR (Clear); Glucose, Urine (Dipstick) Negative (Negative); Leukocyte Negative (Negative); Nitrite Negative (Negative); Protein, Urine (Dipstick) Negative (Neg-Trace); Specific Gravity, Urine 1.012 (1.002-1.036); Urobilinogen 0.2 mg/dL (0.2-1.0)
[2018-11-13] MEDS: traMADol HCl 50 MG TAB PO SCH ×4 (03:10→18:26)
[2018-11-13] MEDS: Acetaminophen 1,000 MG in Premix Bag 1 BAG IVPB SCH ×4 (03:10→18:15)
[2018-11-13 03:12] LABS: Bacteria/HPF None Seen HPF (None Seen); Hyaline Casts/LPF 0-3 HYALINE CAST LPF (0-3 Hyaline); RBC/HPF 0-3 HPF (0-3); Squamous Epithelial None Seen HPF (0-3); Urine Culture Reflex No No; WBC/HPF 0-3 HPF (0-3)
[2018-11-13] MEDS: Ketorolac Tromethamine 30 MG/ML VIAL IVP SCH ×3 (05:12→18:15)
[2018-11-13] MEDS: methylPREDNISolone Sod Succ 40 MG VIAL IVP SCH ×2 (05:13→11:50)
[2018-11-13] MEDS ORDERED: Clindamycin/D5W 900 MG in Premix Bag 1 BAG IVPB SCH (08:45)
--- NOTE | 2018-11-13 09:29 | CON ---
DATE OF CONSULTATION: 11/13/2018 REQUESTING PHYSICIAN: Trauma Services. CONSULTING PHYSICIAN: Foster Garcia MD. REASON FOR CONSULTATION: Right hip fracture. HISTORY OF PRESENT ILLNESS: This is a 68-year-old female, who presented to [facility] status post fall as a transfer from [facility]. 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 The patient denies any head trauma or loss of consciousness. The patient reports that over the past six months, her blood pressure has been borderline low, but her primary care physician has insisted on remaining her home dose of lisinopril. Furthermore, the patient reports approximately a week-long history of increasing congestion and increased sputum production. Upon review of the records from [place] [facility], the patient was hypoxic with an O2 saturation of 88% on room air and a systolic blood pressure of approximately 90. The patient was seen in the [place] Emergency Department. She was found to have a right hip fracture. She was then transferred to our facility for further evaluation and higher level of care. We have been consulted for this reason. The patient has been admitted to the Trauma Services. Currently, at bedside, the patient reports isolated right hip pain. She denies any other pain at this time. She denies any numbness or tingling. She denies any other injuries. ALLERGIES: INCLUDE: 1. PENICILLINS. 2. SULFA. PAST MEDICAL HISTORY: Significant for osteoporosis, hypothyroidism, GERD, lichen planus, chronic back pain from lumbar and thoracic fractures, and COPD. PAST SURGICAL HISTORY: Hysterectomy, cholecystectomy, and appendectomy. SOCIAL HISTORY: The patient lives with caregivers. She ambulates with the use of a cane or a walker. She denies any alcohol or illicit drugs. She is a current smoker, one pack per day for the last 45 years. FAMILY HISTORY: Reviewed and noncontributory. REVIEW OF SYSTEMS: A 10-point review of systems was conducted and otherwise negative except for stated above. PHYSICAL EXAMINATION: VITAL SIGNS: Temperature of 98.6, pulse of 78, respiratory rate of 20, O2 saturation of 95% on 1.5 L of nasal cannula air, and blood pressure of 104/62. GENERAL: The patient is awake and alert. She is in no apparent distress. She is lying supine in bed. No family is present in the exam room at the time of our visit. She is pleasant and cooperative with exam findings today. HEENT: Head is normocephalic and atraumatic. NECK: Supple. Trachea midline. RESPIRATORY: Breathing nonlabored. EXTREMITIES: All four extremities were evaluated. There are no obvious injuries to any of the extremities. No deformities. No shortening of either lower extremity. The patient is tender along the trochanteric region of the right hip. Distal neurovascular status is intact. She is able to slightly actively move her right lower extremity on her own. IMAGING DATA: Reviewed including views of the right hip obtained from the [place] [facility] show evidence of a displaced and impacted femoral neck fracture. ASSESSMENT: Right hip femoral neck fracture with displacement and impaction status post ground level fall. PLAN: At this time, I have had a long talk with the patient regarding options for her. She normally ambulates with a walker or a cane. She is a longstanding smoker with a history of COPD. She lives with caregivers. We have discussed surgical options, and at this point, we will likely perform a hemiarthroplasty to restore function and preserve her anatomic alignment of her right hip. Risks, benefits, and alternatives of this procedure were discussed at length with the patient. These include, but are not limited to, bleeding, infection, neurovascular injury, failure of the orthopedic device. She verbalized understanding and is amenable to the plan of care to go forward with surgery this afternoon. She is n.p.o. and admitted to the Trauma Service. We will get her consented and planned for surgery later this afternoon. Job ID: [id number]
[2018-11-13] MEDS: Famotidine 20 MG TAB PO SCH ×2 (09:42→20:18)
[2018-11-13] MEDS ORDERED: Ondansetron PF 4 MG/2 ML Vial ONE (09:54)
[2018-11-13] MEDS ORDERED: Lidocaine 1% PF 5 ML VIAL ONE (09:54)
[2018-11-13] MEDS ORDERED: Rocuronium Bromide 10 MG/ML (10ML VIAL) ONE (09:54)
[2018-11-13] MEDS ORDERED: PROPOFOL 200 MG/20 ML VIAL ONE (09:54)
[2018-11-13] MEDS ORDERED: Glycopyrrolate 0.2 MG/ML 5 ML SYRINGE ONE (09:54)
[2018-11-13] MEDS ORDERED: Clindamycin/D5W 900 mg/50 ml Premix Bag ONE (13:00)
[2018-11-13] MEDS ORDERED: Midazolam HCl 2 mg/2 ml Vial ONE (13:40)
[2018-11-13] MEDS ORDERED: Fentanyl 100 MCG/2 ML VIAL ONE (13:55)
--- NOTE | 2018-11-13 17:22 | PDOC.PN ---
- Subjective Encounter Start Date: 11/13/18 Encounter Start Time: 09:00 Subjective: pt up in bed states that her upper respiratory symptoms started -: couple days ago. She comes in with a mechanical fall and fx her right hip -: she was found to be hypoxic at 88%. pt continues to smoke a pack a day she lives with family and according to her they have been ill. - Objective Resuscitation Status - Order Detail: 11/12/18 23:21 Resuscitation Status Routine Co-Sign Provider: Resuscitation Status: FULL: Full Resuscitation Vital Signs & Weight: Vital Signs (12 hours) Temp Pulse Resp BP Pulse Ox 11/13/18 11:20 98.2 F 76 14 105/62 92 L 11/13/18 08:10 92 L 11/13/18 07:15 95 11/13/18 07:13 78 20 95 11/13/18 07:10 98.6 F 78 14 104/62 92 L 11/13/18 05:44 98.8 F 80 18 101/63 98 Weight Admit Weight 98 lb 12.8 oz Weight 98 lb 12.8 oz I&O: 11/12/18 11/13/18 11/14/18 06:59 06:59 06:59 Intake Total 323 Output Total 725 Balance -402 Result Diagrams: 11/12/18 23:36 11/12/18 23:36 Additional Labs: Accuchecks 11/13/18 11/13/18 11:24 05:13 POC Glucose 119 H 99 Phys Exam - Physical Examination Neck: no nodes, no JVD, supple, full ROM mild rhonchi all over Cardiovascular: RRR, no significant murmur, no rub, gallop, irregular Gastrointestinal: soft, non-tender, no distention, positive bowel sounds Musculoskeletal: no edema, pulses present, edema present Dx/Plan (1) Hypoxia Code(s): R09.02 - HYPOXEMIA Status: Acute (2) COPD (chronic obstructive pulmonary disease) Status: Acute (3) Fall Code(s): W19.XXXA - UNSPECIFIED FALL, INITIAL ENCOUNTER Status: Acute - Plan According to pt she has not had PFT's but she uses a inhaler -: i did advise her to stop smoking. She most likley has bronchitis vs mild -: copd exab. will start her on steroids daily, and duonebs. she also has -: osteoprosis. She denies any chest pain or sob. prior to her fall. -: ekg reviewed no acute changes. 30 day risk of DE or cardiac 3.9% * . based on revised cardiac risk index. however she is a smoker and will optimize her. Review of Systems - Review of Systems Respiratory: Cough Cardiovascular: negative: chest pain, palpitations, orthopnea, paroxysmal nocturnal dyspnea, edema, light headedness, other Gastrointestinal: negative: Nausea, Vomiting, Abdominal Pain, Diarrhea, Constipation, Melena, Hematochezia, Other Genitourinary: negative: Dysuria, Frequency, Incontinence, Hematuria, Retention , Other Musculoskeletal: negative: Neck Pain, Shoulder Pain, Arm Pain, Back Pain, Hand Pain, Leg Pain, Foot Pain, Other - Medications/Allergies Allergies/Adverse Reactions: Allergies Allergy/AdvReac Type Severity Reaction Status Date / Time Penicillins Allergy Verified 01/25/13 21:43 sulfacetamide sodium Allergy Verified 01/25/13 21:44 [From Sulfamide] Medications: Current Medications Albuterol/Ipratropium (Duoneb) 3 ml NEB Q4H PRN PRN Reason: Wheezing Albuterol/Ipratropium (Duoneb) 3 ml NEB [id number] [facility] Last Admin: 11/13/18 14:14 Dose: Not Given Dextrose/Water (Dextrose 50%) 25 gm SLOW IVP PRN PRN PRN Reason: Hypoglycemia Famotidine (Pepcid) 20 mg PO BID [facility] Last Admin: 11/13/18 09:42 Dose: 20 mg Glucagon (Glucagon) 1 mg IM PRN PRN PRN Reason: Hypoglycemia Hydralazine HCl (Apresoline) 10 mg SLOW IVP Q4H PRN PRN Reason: SBP > 170 or DBP > 100 Acetaminophen 1,000 mg/ Device 100 mls @ 400 mls/hr IVPB Q6HR [facility] Stop: 11/13/18 23:59 Last Admin: 11/13/18 11:49 Dose: 100 mls Dextrose/Water (D5w) 1,000 mls @ 0 mls/hr IV .Q0M PRN PRN Reason: Hypoglycemia Sodium Chloride (Normal Saline 0.9%) 1,000 mls @ 80 mls/hr IV .[id number] [facility] Last Admin: 11/13/18 15:40 Dose: Not Given Clindamycin Phosphate/Dextrose (900 mg/ Device) 50 mls @ 100 mls/hr IVPB ONCALL -OR [facility]AD[facility] Clindamycin Phosphate/Dextrose (900 mg/ Device) 50 mls @ 100 mls/hr IVPB Q8HR [facility] Stop: 11/14/18 14:29 Insulin Human Lispro (Humalog) 0 units SC .MILD SLIDING SCALE PRN PRN Reason: Mild Correctional Scale Ketorolac Tromethamine (Toradol) 15 mg IVP Q6HR [facility] Stop: 11/18/18 06:01 Last Admin: 11/13/18 11:49 Dose: 15 mg Methylprednisolone Sodium Succinate (Solu-Medrol) 40 mg IVP DAILY [facility] Morphine Sulfate (Morphine) 2 mg SLOW IVP Q4H PRN PRN Reason: severe breakthrough pain Last Admin: 11/13/18 03:16 Dose: 2 mg Nicotine (Nicoderm Patch) 21 mg TD DAILY [facility] Ondansetron HCl (Zofran Odt) 4 mg PO Q6H PRN PRN Reason: Nausea/Vomiting Ondansetron HCl (Zofran) 4 mg IVP Q6H PRN PRN Reason: Nausea Sodium Chloride (Flush - Normal Saline) 10 ml IVF PRN PRN PRN Reason: Saline Flush Sterile Water (Bacteriostatic Water) 1 ml FS PRN PRN PRN Reason: RECONSTITUTION Tramadol HCl (Ultram) 50 mg PO Q6H [facility] Last Admin: 11/13/18 11:47 Dose: 50 mg Tramadol HCl (Ultram) 50 mg PO Q6H PRN PRN Reason: Breakthrough Pain
--- NOTE | 2018-11-13 17:26 | RAD ---
FRadiograph right hip 2 views: 11/13/2018 HISTORY: 68-year-old female with right subcapital femoral neck fracture COMPARISON: 11/12/2018 FINDINGS: Femoral head and neck have been resected, and replaced with metallic prosthesis with a stem that reac hes the proximal femoral shaft. Acetabular cup. Lateral skin adelina and subcutaneous emphysema. IMPRESSION: Recently status post right hip replacement arthroplasty
[2018-11-13] MEDS ORDERED: Promethazine HCl 25 MG/ML VIAL IM PRN (17:29)
[2018-11-13] MEDS ORDERED: Ondansetron HCl/PF 4 MG/2 ML Vial IVP PRN (17:29)
[2018-11-13] MEDS ORDERED: Promethazine HCl 25 MG/ML VIAL SLOW IVP PRN (17:29)
--- NOTE | 2018-11-13 17:58 | PRG ---
DATE OF SERVICE: 11/13/2018 SUBJECTIVE: The patient is hospital day #2, status post ground level fall when she sustained a right subcapital hip fracture. She has been medically cleared for her surgery, which she is scheduled for today. She has had no issues overnight. She has been n.p.o. after midnight. Her pain is currently controlled. OBJECTIVE: VITAL SIGNS: Temperature is 98.6, heart rate 78, blood pressure 104/62, respirations 14, and oxygen saturation is 95% on 1.5 L of oxygen via nasal cannula. GENERAL: The patient is resting comfortably in bed. She is awake, alert, and oriented x3. [place] Coma Scale is 15. HEENT: Unremarkable. LUNGS: With scattered rhonchi and occasional expiratory wheezes. HEART: Regular rate and rhythm. ABDOMEN: Soft, flat, nontender with active bowel sounds. EXTREMITIES: Neurovascularly intact x4. DIAGNOSTIC STUDIES: There are no labs or radiographs to review this morning. ASSESSMENT: 1. Status post ground level fall. 2. Right subcapital hip fracture, awaiting surgery. 3. Possible chronic obstructive pulmonary disease exacerbation. 4. History of hypothyroidism. 5. History of hypertension. PLAN: Plan will be to continue supportive care. Remain n.p.o. until her surgical procedure. Postoperatively, we will begin a diet. Switch to p.o. pain medications and begin physical and occupational therapy. The patient has also been seen by the hospitalist who started her on steroids and breathing treatments. The patient was evaluated this morning with Dr. Bains. Job ID: [id number]
[2018-11-13] MEDS: Clindamycin/D5W 900 MG in Premix Bag 1 BAG IVPB SCH (22:47)
[2018-11-14] MEDS: traMADol HCl 50 MG TAB PO SCH ×4 (00:55→18:24)
[2018-11-14] MEDS: Acetaminophen 1,000 MG in Premix Bag 1 BAG IVPB SCH (00:56)
[2018-11-14] MEDS: Ketorolac Tromethamine 30 MG/ML VIAL IVP SCH ×4 (00:56→18:25)
[2018-11-14] MEDS: Clindamycin/D5W 900 MG in Premix Bag 1 BAG IVPB SCH ×2 (06:11→14:56)
[2018-11-14] MEDS: Nicotine 21 MG PATCH TD SCH (08:20)
[2018-11-14] MEDS: Famotidine 20 MG TAB PO SCH ×2 (08:20→20:41)
[2018-11-14] MEDS: methylPREDNISolone Sod Succ 40 MG VIAL IVP SCH (08:21)
[2018-11-14] MEDS: Bacteriostatic Water 30 ML VIAL FS PRN (08:21)
[2018-11-14] MEDS: Sodium Chloride 0.9% 1,000 ML IV SCH (08:25)
[2018-11-14 09:51] LABS: #Monocytes 0.3 thou/uL (0.11-0.59); #Neutrophils 4.2 thou/uL (1.40-6.50); %Basophils 0.2 % (0.0-1.0); %Eosinophils 0.3 % (0.0-10.0); %Lymphocytes 17.8 % (21.0-51.0); %Monocytes 5.6 % (0.0-10.0); %Neutrophils 76.2 % (42.0-75.0); Hemoglobin 9.8 g/dL (12.0-16.0); Mean Corpuscular HGB CONC 32.9 g/dL (32.0-36.0); Mean Corpuscular Hemoglobin 31.4 pg (27.0-31.0); Mean Corpuscular Volume 95.4 fL (78.0-98.0); Mean Platelet Volume 8.9 fL (7.4-10.4); Platelet Count 146 thou/uL (130-400); RBC Distribution Width 14.8 % (11.5-14.5); Red Blood Cell (RBC) Count 3.12 mill/uL (4.20-5.40); White Blood Cell (WBC) Count 5.6 thou/uL (4.8-10.8)
--- NOTE | 2018-11-14 10:26 | OP ---
DATE OF PROCEDURE: 11/13/2018 PREOPERATIVE DIAGNOSIS: Right femoral neck fracture. POSTOPERATIVE DIAGNOSIS: Right femoral neck fracture. PROCEDURE PERFORMED: Right hip hemiarthroplasty. ANESTHESIA: General. COCONUT CANDY MAKER: Leonor Mix PA-C ESTIMATED BLOOD LOSS: 150 mL. IMPLANTS: Minglyuy system was used with a [place] size 6 cemented stem, a 28 x 45 bipolar cup, an Articul/Keith +1.5 head, and the [place] simplex tobramycin cement. COMPLICATIONS: None. DRAINS: None. SPECIMEN: None. OUTCOME: Stable hemiarthroplasty. INDICATIONS: The patient is a 68-year-old lady status post ground level fall sustaining a displaced right femoral neck fracture. Given the displacement as well as the patient's history of prior insufficiency fractures and osteoporosis, I have discussed with her the risks and benefits of hemiarthroplasty. The risks include, but are not limited to bleeding, infection, nerve injury, DVT, PE, dislocation, periprosthetic fracture, loss of limb or life. They appear to understand and do wish to proceed. Informed consent has been obtained. DESCRIPTION OF PROCEDURE: The patient was brought to the operating room and a time-out performed followed by induction of general anesthesia. Next, the patient was positioned in the left lateral decubitus position, and sterile prep and drape was performed of the right lower extremity. A curvilinear incision was made centered over the greater trochanter. After the skin was sharply incised, dissection was carried down to the underlying tensor fascia and fascia perla. This structure was incised in line with the skin incision, reflected anteriorly and posteriorly, and held in place with a Charnley retractor. The trochanteric bursa was then swept off the short external rotators and then elevator placed under the abductors, further exposing and isolating the short external rotators. These were released off the posterior aspect of the femur and tagged with #2 Vicryl for eventual reattachment. Next, a T-capsulotomy was performed. Leaflets were reflected and then the femoral head excised using a corkscrew device. Next, an oscillating saw was used to make a femoral neck cut. The proximal femur was then further prepared using a combination of box chisel, followed by an opening T-handle awl. The lateralizing reamer was then utilized followed by progressive increase sized T-handle awls. Size 6 gave a relatively good fit distally. Next, broaching was started at size 3 and continued up to size 6, which gave reasonable fit fill. A trial reduction was performed with a +1.5 head and a 45 cup, which gave good stability. Next, all trial components were removed and the hip was irrigated with 3 L of normal saline using Pulsavac. Cement was then mixed and packed in the proximal femur after a cement restrictor was applied. Next, the stem was introduced and held in place until cement had fully cured with excess cement being removed during this process. The final bipolar head was applied to the stem and then the hip was reduced and found to be quite stable. Closure was then performed after further irrigation with #2 Vicryl for the leaflets of the capsule, followed by #2 Vicryl for the short external rotators, #2 Vicryl also for the tensor fascia and fascia perla, followed by 0 Vicryl for the Eduardo fascia, 2-0 Vicryl subcutaneously, and adelina for the skin. Xeroform gauze and tape dressing were then applied to the thigh, and the patient was transferred to recovery room in stable condition. There were no complications. The patient tolerated the procedure well. Job ID: [id number]
--- NOTE | 2018-11-14 16:29 | PDOC.PN ---
- Subjective Encounter Start Date: 11/14/18 Encounter Start Time: 16:28 Subjective: s/p right hip hemiarthroplasty. Doing well. Worked with PT earlier today -: Still coughing with yellow sputum. no fever. - Objective Resuscitation Status - Order Detail: 11/14/18 13:44 Resuscitation Status Routine Co-Sign Provider: Resuscitation Status: DNAR: NO Resuscitation Discussed with: [place] pt and family at admission Vital Signs & Weight: Vital Signs (12 hours) Temp Pulse Resp BP Pulse Ox Pulse Ox Pulse Ox 11/14/18 15:24 97.3 F L 82 20 125/69 98 11/14/18 13:35 78 L 96 11/14/18 11:13 98.8 F 84 16 124/70 95 11/14/18 08:20 93 L 11/14/18 07:25 98.3 F 88 14 96/57 L 93 L 11/14/18 06:36 71 16 96 Weight Admit Weight 98 lb 12.8 oz Weight 98 lb 12.8 oz I&O: 11/13/18 11/14/18 11/15/18 06:59 06:59 06:59 Intake Total 323 1200 Output Total 725 100 850 Balance -402 -100 350 Result Diagrams: 11/14/18 09:26 11/12/18 23:36 Additional Labs: Accuchecks 11/14/18 11/14/18 11:08 06:23 POC Glucose 111 H 106 Phys Exam - Physical Examination thin elderly female in no distress, afebrile HEENT: PERRLA, moist MMs Neck: no JVD, supple fair air entry with transmitted sound. No rhonchi Cardiovascular: RRR Gastrointestinal: soft, non-tender, no distention Musculoskeletal: no edema, pulses present Neurological: non-focal, moves all 4 limbs Psychiatric: A&O x 3 Dx/Plan (1) COPD exacerbation Code(s): J44.1 - CHRONIC OBSTRUCTIVE PULMONARY DISEASE W (ACUTE) EXACERBATION Status: Acute (2) Femoral neck fracture Code(s): S72.009A - FRACTURE OF UNSP PART OF NECK OF UNSP FEMUR, INIT Status: Acute (3) Acute respiratory failure with hypoxia Code(s): J96.01 - ACUTE RESPIRATORY FAILURE WITH HYPOXIA Status: Acute (4) Fall Code(s): W19.XXXA - UNSPECIFIED FALL, INITIAL ENCOUNTER Status: Acute (5) HLD (hyperlipidemia) Code(s): E78.5 - HYPERLIPIDEMIA, UNSPECIFIED Status: Chronic (6) HTN (hypertension) Code(s): I10 - ESSENTIAL (PRIMARY) HYPERTENSION Status: Chronic (7) Hypothyroidism Code(s): E03.9 - HYPOTHYROIDISM, UNSPECIFIED Status: Chronic (8) Tobacco abuse Code(s): Z72.0 - TOBACCO USE Status: Chronic (9) Acute blood loss anemia Code(s): D62 - ACUTE POSTHEMORRHAGIC ANEMIA Status: Acute - Plan Start doxycycline and mucinex. Continue bronchodilator and steroid -: Monitor CBC and Renal function -: Dc IVF. -: Wean oxygen as tolerated. -: PT/OT as per Ortho. Anticipate discharge to acute rehab * .
--- NOTE | 2018-11-14 17:26 | PRG ---
DATE OF SERVICE: 11/14/2018 SUBJECTIVE: The patient is hospital day 2, postop day 1, status post ground level fall when she sustained a right subcapital hip fracture. Yesterday, she underwent open reduction and internal fixation of the same. She tolerated this well. She had no reported issues overnight. This morning, she reports that her pain is controlled. She is tolerating a diet. She is scheduled to work with Physical and Occupational Therapy today. OBJECTIVE: VITAL SIGNS: Temperature is 98.8, heart rate 84, blood pressure 124/70, respirations 16, oxygen saturation 95% on 2 L via nasal cannula. GENERAL: The patient is resting comfortably in bed. She is awake, alert, and oriented. HEENT: Unremarkable. LUNGS: Have improved. There is markedly less rhonchi and no wheezes this morning. HEART: Regular rate and rhythm. ABDOMEN: Soft, flat, nontender with active bowel sounds. EXTREMITIES: Neurovascularly intact x4. Postop dressing is clean, dry, and intact. LABORATORY FINDINGS: White blood cell count 5.6, hemoglobin 9.8, hematocrit 29.8, platelets 146. There are no radiographs reviewed this morning. ASSESSMENT: 1. Status post ground level fall. 2. Status post right subcapital hip fracture, status post right hip hemiarthroplasty. 3. Probable chronic obstructive pulmonary disease exacerbation, improved. PLAN: Plan will be to continue supportive care. Wean from oxygen as possible. Continue physical and occupational therapy and discuss placement tomorrow. Job ID: [id number]
[2018-11-14] MEDS: Doxycycline 100 MG CAP PO SCH (20:41)
[2018-11-14] MEDS: guaiFENesin ER 600 MG TAB PO SCH (20:41)
[2018-11-15] MEDS: traMADol HCl 50 MG TAB PO SCH ×5 (00:09→23:23)
[2018-11-15] MEDS: Ketorolac Tromethamine 30 MG/ML VIAL IVP SCH ×2 (00:10→06:18)
--- NOTE | 2018-11-15 07:32 | HP ---
ADDENDUM: This is an addendum to the H and P dictated by Hansa Sharpe [facility], for full details, please see that H and P, the details of which I have confirmed. HISTORY OF PRESENT ILLNESS: In short, Ms. 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 She did have some dizziness, but denies any head trauma or loss of consciousness. The patient does have COPD, but is not on home O2. She states that she has had a cold recently and has had more coughing and nasal congestion as a result, but is otherwise well. She complains of no other pain except in her hip. She does have a significant history of steroid use related to her COPD as well as osteoporosis. PAST MEDICAL HISTORY: Includes COPD, osteoporosis, hypothyroidism, GERD, and chronic back pain from compression fractures. PAST SURGICAL HISTORY: Hysterectomy, cholecystectomy, and appendectomy. MEDICATIONS: Outpatient medications are reviewed. She is currently on; 1. DuoNebs. 2. Pepcid. 3. Sliding scale insulin. 4. Solu-Medrol. 5. Nicotine patch. 6. Multiple p.r.n. medications. SOCIAL HISTORY: Continued ongoing tobacco abuse. She is a 45 pack-year smoker, but claims that she is down to half a pack a day and denies alcohol or illicit drug use. FAMILY HISTORY: Noncontributory. REVIEW OF SYSTEMS: Negative except per HPI. PHYSICAL EXAMINATION: GENERAL: Reveals a frail woman, who appears older than her stated age. She has oxygen in place due to low saturations on room air, but claims she is not on oxygen at home. VITAL SIGNS: Temperature 98.2, respirations 14, 92% saturated on room air, heart rate 76, and blood pressure 105/62. HEENT: Unremarkable. NECK: Supple without lymphadenopathy or step-offs. HEART: Regular in its rate and rhythm without murmurs, rubs, or gallops. LUNGS: But her lungs sounds are diffusely distant with inspiratory and expiratory wheezes and rhonchi. ABDOMEN: Soft, nontender, and nondistended. EXTREMITIES: Warm and well perfused. She has normal movement of her toes and ankles. IMAGING DATA: Imaging reveals hyperinflated lungs and large cardiac silhouette with no infiltrates. Hip x-ray done in [place] prior to her transfer here showed an acute subcapital proximal right femoral fracture. ASSESSMENT AND PLAN: Right subcapital proximal femur fracture, for which operative intervention is planned by Orthopedics. She does have significant underlying pulmonary disease as well as osteoporosis and ongoing tobacco abuse. The patient is aware of her chronic obstructive pulmonary disease and its relationship to her ongoing tobacco abuse, but does not feel that she is able to quit smoking. Her room air saturations has been marginal and it is possible that she is significantly hypoxic with activity. I did relate to her that ongoing smoking could impede the healing process and she is willing to try to stop smoking at least in the short term following her operative repair. She is at increased risk of pulmonary complications and will require observation for this postoperatively as well as aggressive pulmonary toilet. Job ID: [id number]
[2018-11-15] MEDS: Famotidine 20 MG TAB PO SCH (08:47)
[2018-11-15] MEDS: guaiFENesin ER 600 MG TAB PO SCH ×2 (08:47→20:41)
[2018-11-15] MEDS: Doxycycline 100 MG CAP PO SCH ×2 (08:47→20:35)
[2018-11-15] MEDS: methylPREDNISolone Sod Succ 40 MG VIAL IVP SCH (08:48)
[2018-11-15] MEDS: Bacteriostatic Water 30 ML VIAL FS PRN (08:48)
[2018-11-15] MEDS: Nicotine 21 MG PATCH TD SCH (08:48)
[2018-11-15] MEDS ORDERED: Aspirin 81 mg Enteric Coated Tablet PO SCH (09:00)
[2018-11-15 09:47] LABS: #Lymphocytes 1.8 thou/uL (1.20-3.40); #Monocytes 0.3 thou/uL (0.11-0.59); #Neutrophils 4.6 thou/uL (1.40-6.50); %Basophils 0.1 % (0.0-1.0); %Eosinophils 0.4 % (0.0-10.0); %Lymphocytes 26.9 % (21.0-51.0); %Monocytes 4.6 % (0.0-10.0); Hemoglobin 10.6 g/dL (12.0-16.0); Mean Corpuscular HGB CONC 32.1 g/dL (32.0-36.0); Mean Corpuscular Hemoglobin 31.1 pg (27.0-31.0); Mean Corpuscular Volume 96.9 fL (78.0-98.0); Mean Platelet Volume 8.8 fL (7.4-10.4); Platelet Count 152 thou/uL (130-400); RBC Distribution Width 14.9 % (11.5-14.5); Red Blood Cell (RBC) Count 3.39 mill/uL (4.20-5.40); White Blood Cell (WBC) Count 6.8 thou/uL (4.8-10.8)
[2018-11-15 10:08] LABS: Anion Gap 11 mmol/L (10-20); BUN (Urea Nitrogen) 11 mg/dL (9.8-20.1); Calc. Creatinine Clearance 66 mL/min (70-130); Calcium 8.7 mg/dL (7.8-10.44); Carbon Dioxide 28 mmol/L (23-31); Chloride 103 mmol/L (98-107); Estimated GFR-MDRD Greater than 90; Glucose 140 mg/dL (80-115); Magnesium 1.7 mg/dL (1.6-2.6); Phosphorus 2.5 mg/dL (2.3-4.7); Potassium 3.7 mmol/L (3.5-5.1); Sodium 138 mmol/L (136-145)
--- NOTE | 2018-11-15 12:44 | PDOC.PN ---
- Subjective Encounter Start Date: 11/15/18 Encounter Start Time: 12:43 Subjective: Feeling better. -: Off oxygen. Cough is now productive. -: No fever, chest pain or SOB. - Objective Resuscitation Status - Order Detail: 11/14/18 13:44 Resuscitation Status Routine Co-Sign Provider: Resuscitation Status: DNAR: NO Resuscitation Discussed with: [place] pt and family at admission Vital Signs & Weight: Vital Signs (12 hours) Temp Pulse Resp BP Pulse Ox 11/15/18 11:50 95/45 L 11/15/18 11:29 98.5 F 89 14 90/55 L 92 L 11/15/18 07:19 98.5 F 95 14 110/62 92 L 11/15/18 06:49 96 11/15/18 06:47 72 16 96 11/15/18 04:46 98.3 F 85 20 118/69 92 L Weight Admit Weight 98 lb 12.8 oz Weight 98 lb 12.8 oz I&O: 11/14/18 11/15/18 11/16/18 06:59 06:59 06:59 Intake Total 3910 1100 Output Total 100 1900 1425 Balance -100 2009 Result Diagrams: 11/15/18 09:36 11/15/18 09:36 Phys Exam - Physical Examination Constitutional: NAD HEENT: PERRLA, moist 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 No rhonchi appreciated Cardiovascular: RRR Gastrointestinal: soft Musculoskeletal: no edema, pulses present Neurological: non-focal, moves all 4 limbs ambulating with PT Psychiatric: A&O x 3 Dx/Plan (1) COPD exacerbation Code(s): J44.1 - CHRONIC OBSTRUCTIVE PULMONARY DISEASE W (ACUTE) EXACERBATION Status: Acute (2) Acute respiratory failure with hypoxia Code(s): J96.01 - ACUTE RESPIRATORY FAILURE WITH HYPOXIA Status: Acute Comment: Resolved. (3) Femoral neck fracture Code(s): S72.009A - FRACTURE OF UNSP PART OF NECK OF UNSP FEMUR, INIT Status: Acute (4) Fall Code(s): W19.XXXA - UNSPECIFIED FALL, INITIAL ENCOUNTER Status: Acute (5) HLD (hyperlipidemia) Code(s): E78.5 - HYPERLIPIDEMIA, UNSPECIFIED Status: Chronic (6) HTN (hypertension) Code(s): I10 - ESSENTIAL (PRIMARY) HYPERTENSION Status: Chronic Comment: BP soft hence antihypertensive held. (7) Hypothyroidism Code(s): E03.9 - HYPOTHYROIDISM, UNSPECIFIED Status: Chronic (8) Tobacco abuse Code(s): Z72.0 - TOBACCO USE Status: Chronic (9) Acute blood loss anemia Code(s): D62 - ACUTE POSTHEMORRHAGIC ANEMIA Status: Acute - Plan Continue steroid, antibiotics, mucolytic and IS -: Continue PT. -: Medically ready for discharge. Needs rehabilitation -: case mgt on the case. SNF vs inpatient rehab. * .
[2018-11-15] MEDS: Ibuprofen 600 MG TAB PO SCH ×2 (15:50→20:35)
[2018-11-15] MEDS ORDERED: DICLOFENAC SODIUM TOP PRN (17:08)
[2018-11-15] MEDS ORDERED: Clobetasol 0.05% Cream 15 gm Tube TOP PRN (17:08)
[2018-11-15] MEDS: HYDROcodone/Acetaminophen 7.5/325 mg Tablet PO PRN (18:24)
[2018-11-15] MEDS: Colchicine 0.6 MG TAB PO SCH (20:41)
[2018-11-15] MEDS: Gabapentin 300 MG CAP PO SCH (20:41)
[2018-11-15] MEDS ORDERED: Non-Formulary Item 1 EACH (Omeprazole [Omeprazole] 1 TAB) PO SCH (21:00)
[2018-11-15] MEDS ORDERED: Amitriptyline HCl 25 MG TAB PO SCH (21:00)
[2018-11-16] MEDS: traMADol HCl 50 MG TAB PO SCH ×2 (05:26→11:11)
[2018-11-16] MEDS ORDERED: Levothyroxine Sodium 50 MCG TAB PO SCH (06:00)
[2018-11-16 07:55] VITALS: BP 121/72; TEMP 98.6
--- NOTE | 2018-11-16 08:01 | PRG ---
DATE OF SERVICE: 11/15/2018 SUBJECTIVE: The patient is on hospital day 3, postoperative day 2 status post ground level fall, during which she sustained a right subcapital hip fracture. She underwent an open reduction and internal fixation of her right hip, tolerated the procedure well. Today, she is resting comfortably in bed. No reported issues overnight. Pain well controlled. Tolerating p.o. She is prepared for discharge today to [facility]. OBJECTIVE: VITAL SIGNS: Temperature 98.5, pulse 84, respiratory rate 20, oxygen saturation 92% on room air, blood pressure 102/61. GENERAL: The patient is resting comfortably in bed, in no acute distress. HEENT: NC/AT. LUNGS: Normal respiratory effort with even expiration and inspiration HEART: Regular rate and rhythm. ABDOMEN: Soft, flat. No distention. EXTREMITIES: Neurovascularly intact x4. Postoperative dressing clean, dry, and intact. LABORATORY FINDINGS AND IMAGING: Hemoglobin 10.6. Creatinine 0.57, glucose 140. No imaging today. ASSESSMENT: 1. Status post ground level fall. 2. Status post right subcapital hip fracture, post right hip hemiarthroplasty. 3. Probable chronic obstructive pulmonary disease exacerbation, improved. PLAN: Successfully weaned from oxygen. Saturating well on room air. The patient has been evaluated by Inpatient Rehab. Desires [facility], awaiting approval. Continue PT and OT therapies as tolerated. Pain well controlled. Continue current pain medicine regimen. Job ID: [id number]
[2018-11-16] MEDS: Gabapentin 300 MG CAP PO SCH (08:46)
[2018-11-16] MEDS: Ibuprofen 600 MG TAB PO SCH (08:46)
[2018-11-16] MEDS: guaiFENesin ER 600 MG TAB PO SCH (08:46)
[2018-11-16] MEDS: Nicotine 21 MG PATCH TD SCH (08:46)
[2018-11-16] MEDS: Colchicine 0.6 MG TAB PO SCH (08:46)
[2018-11-16] MEDS: methylPREDNISolone Sod Succ 40 MG VIAL IVP SCH ×2 (08:47→11:53)
[2018-11-16] MEDS: Doxycycline 100 MG CAP PO SCH (08:47)
[2018-11-16] MEDS: HYDROcodone/Acetaminophen 7.5/325 mg Tablet PO PRN (08:52)
[2018-11-16] MEDS ORDERED: Lisinopril 5 MG TAB PO SCH (09:00)
[2018-11-16] MEDS ORDERED: Aspirin Chewable 81 MG TAB PO SCH (09:00)
[2018-11-16] MEDS ORDERED: Cholecalciferol (Vitamin D3) [Vitamin D3] PO SCH (09:00)
[2018-11-16] MEDS ORDERED: Teriparatide [Forteo] 20 MCG IM SCH (09:00)
[2018-11-16] MEDS ORDERED: predniSONE 20 MG TAB PO SCH (21:00)
[2018-11-16] MEDS ORDERED: Atorvastatin Calcium 10 MG TAB PO SCH (21:00)
[2018-11-16] MEDS ORDERED: Aspirin 81 mg Enteric Coated Tablet PO SCH (21:00)
--- NOTE | 2018-11-16 21:31 | DIS ---
DATE OF ADMISSION: 11/13/2018 DATE OF DISCHARGE: 11/16/2018 DISCHARGING PHYSICIAN: David King DO PROCEDURES: 1. On 11/12/2018 chest x-ray. Impression, COPD, CHF. 2. On 11/12/2018, x-ray, right hip. Impression, acute subcapital proximal right femoral fracture. 3. On 11/13/2018, right hip hemiarthroplasty by Dr. Garcia. PRIMARY DIAGNOSIS: Right subcapital proximal femur fracture. SECONDARY DIAGNOSIS: Chronic obstructive pulmonary disease. DISCHARGE MEDICATIONS: 1. Aspirin 81 mg p.o. twice a day x1 month. 2. Mucinex 600 mg as needed. 3. Motrin 600 mg three times a day. 4. DuoNeb q.6 hours. 5. Nicotine patch 21 mg transdermal daily. 6. Zofran 4 as needed. 7. Tramadol 50 mg q.6 hours as needed for pain. 8. Pravachol 1 tab oral daily. 9. Omeprazole 1 at bedtime. 10. Lisinopril 1 tab p.o. daily. 11. Synthroid 50 mcg daily. 12. Gabapentin 300 mg three times a day. 13. Elavil 50 mg daily. 14. Vitamin D3 four drops daily. DISCONTINUED MEDICATIONS: Hydrocodone and baby aspirin daily as the patient will be taking aspirin twice a day. 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 The patient denied any head trauma or loss of consciousness. The patient did have some dizziness prior to falling. The patient does have a history of COPD, but not on home oxygen. The patient recently had a cold with coughing and nasal congestion. The patient was found to have a right hip fracture. The patient also has a history of osteoporosis, hypothyroidism, and chronic back pain from compression fractures. The patient was eventually weaned off her oxygen postop. The patient's pain was well controlled during her postop stay. The patient continues to progress with physical therapy. The patient was evaluated by Dr. King on the day of discharge. The patient was deemed stable including unremarkable physical exam, including cardiopulmonary and GI. The patient is stable for swing bed to [place] for continued physical and occupational therapy. The patient agrees with the plan. This is just a summary on the patient's hospital stay. DISPOSITION: Stable. DISCHARGE INSTRUCTIONS: Location: Swing [facility], [place]. Diet: Regular diet. Activity: Orthopedic limitations. Weightbearing as tolerated. Hip precautions. Followup: 1. Follow up with Orthopedics as directed. 2. Follow up with Dr. King. Call for any questions. 3. Follow up with primary care physician, Dr. Pereira. Job ID: [id number]
[2018-11-19] MEDS ORDERED: predniSONE 20 MG TAB PO SCH (09:00)
== END 2018-11-16 11:35 | DRG 469 ==
LOC: ERS 22:08 → SURG A 11-13 01:53
PROVIDERS: ADMIT Surgery; ATTEND Surgery
PROC: 0SRR0J9 Replacement of Right Hip Joint, Femoral Surface with Synthetic Substitute, Cemented, Open Approach (ICD-10-PCS; principal; 2018-11-13)
DX: S72.011A Unspecified intracapsular fracture of right femur, initial encounter for closed fracture (principal); J96.01 Acute respiratory failure with hypoxia; J44.1 Chronic obstructive pulmonary disease with (acute) exacerbation; D62 Acute posthemorrhagic anemia; E03.9 Hypothyroidism, unspecified; Z66 Do not resuscitate; M81.0 Age-related osteoporosis without current pathological fracture; K21.9 Gastro-esophageal reflux disease without esophagitis; E78.5 Hyperlipidemia, unspecified; I95.9 Hypotension, unspecified; F17.210 Nicotine dependence, cigarettes, uncomplicated; Z88.0 Allergy status to penicillin; Z88.2 Allergy status to sulfonamides; Z79.82 Long term (current) use of aspirin; Z90.710 Acquired absence of both cervix and uterus; Z90.49 Acquired absence of other specified parts of digestive tract; W01.0XXA Fall on same level from slipping, tripping and stumbling without subsequent striking against object, initial encounter
CPT/HCPCS: 36415; 36416; 71045; 80048; 80053; 81001; 83735; 83880; 84100; 85025; 85610; 85730; 93005; 94640; 96374; C1713; C1781; G0390; J0131; J1885; J2001; J2250; J2270; J2405; J2704; J2920; J3010; J3490; J7620

== ENCOUNTER 2022-02-13 21:00 | Inpatient (IN) | payer MEDICARE ==
[2022-02-13] MEDS ORDERED: Ondansetron ODT 4 MG TAB SL PRN (23:15)
[2022-02-13] MEDS ORDERED: Ondansetron PF 4 MG/2 ML Vial IVP PRN (23:15)
[2022-02-13] MEDS ORDERED: Acetaminophen 325 MG TAB PO PRN (23:15)
[2022-02-13 23:21] VITALS: BMI 21.8
[2022-02-14] MEDS ORDERED: Non-Formulary Item 1 EACH (Amitriptyline Hcl [Elavil] 50 MG Tab) PO SCH (00:10)
[2022-02-14] MEDS ORDERED: Gabapentin 300 MG CAP PO SCH (00:30)
[2022-02-14] MEDS ORDERED: Amitriptyline HCl 25 MG TAB PO SCH (00:30)
[2022-02-14] MEDS ORDERED: Albuterol 200 PUFF (6.7GM INHALER) INH SCH (01:00)
[2022-02-14] MEDS ORDERED: HYDROcodone/Acetaminophen 7.5/325 mg Tablet PO SCH (01:15)
[2022-02-14] MEDS ORDERED: Acetaminophen 650 MG Suppository PR PRN ×3 (04:36→04:42)
[2022-02-14] MEDS ORDERED: Albuterol 200 PUFF (6.7GM INHALER) INH PRN ×2 (04:36→04:42)
[2022-02-14] MEDS ORDERED: Acetaminophen 325 MG TAB PO PRN ×2 (04:36→04:42)
[2022-02-14] MEDS ORDERED: Benzonatate 100 MG CAP PO PRN ×2 (04:36→04:42)
[2022-02-14] MEDS ORDERED: Furosemide 40 MG/4 ML VIAL SLOW IVP SCH (06:00)
[2022-02-14 06:10] LABS: #Lymphocytes 2.1 thou/uL (1.20-3.40); #Monocytes 0.4 thou/uL (0.11-0.59); #Neutrophils 8.1 thou/uL (1.40-6.50); %Basophils 0.3 % (0.0-1.0); %Eosinophils 0.1 % (0.0-10.0); %Lymphocytes 19.2 % (21.0-51.0); %Neutrophils 76.4 % (42.0-75.0); Hemoglobin 10.9 g/dL (12.0-16.0); Mean Corpuscular HGB CONC 28.8 g/dL (32.0-36.0); Mean Corpuscular Volume 86.8 fL (78.0-98.0); Mean Platelet Volume 8.9 fL (7.4-10.4); Platelet Count 153 thou/uL (130-400); RBC Distribution Width 16.9 % (11.5-14.5); Red Blood Cell (RBC) Count 4.37 mill/uL (4.20-5.40); White Blood Cell (WBC) Count 10.6 thou/uL (4.8-10.8)
[2022-02-14 06:41] LABS: Anion Gap 9 mmol/L (10-20); BUN (Urea Nitrogen) 10 mg/dL (9.8-20.1); Calc. Creatinine Clearance 84 mL/min (70-130); Calcium 7.8 mg/dL (7.8-10.44); Carbon Dioxide 31 mmol/L (23-31); Chloride 106 mmol/L (98-107); Estimated GFR 97; Glucose 87 mg/dL (83-110); Potassium 3.9 mmol/L (3.5-5.1); Sodium 142 mmol/L (136-145)
[2022-02-14] MEDS ORDERED: REMDESIVIR 200 MG in Sodium Chloride 0.9% 250 ML 210 ML IV SCH (09:00)
[2022-02-14] MEDS: Enoxaparin Sodium 40 MG/0.4 ML SYRINGE SC SCH (09:54)
[2022-02-14] MEDS: Pantoprazole 40 MG VIAL IVP SCH (09:54)
[2022-02-14] MEDS: Dexamethasone 10 MG/ML VIAL SLOW IVP SCH (09:54)
[2022-02-14] MEDS: Gabapentin 300 MG CAP PO SCH ×2 (09:55→20:12)
[2022-02-14] MEDS: Ascorbic Acid 500 mg Chewable Tablet PO SCH (09:55)
[2022-02-14] MEDS: HYDROcodone/Acetaminophen 7.5/325 mg Tablet PO SCH ×3 (09:55→20:11)
[2022-02-14] MEDS: Zinc Sulfate 220 MG CAP PO SCH (09:56)
[2022-02-14] MEDS: Cholecalciferol (Vitamin D3) 400 UNITS TAB PO SCH (09:56)
[2022-02-14] MEDS: Amitriptyline HCl 25 MG TAB PO SCH (20:12)
[2022-02-14] MEDS: Nicotine 21 MG PATCH TOP SCH (20:56)
[2022-02-15 04:50] LABS: Anisocytosis SLIGHT = 6-15 cells (100X) (0-5/hpf); Band 5 % (5-11); Hemoglobin 12.8 g/dL (12.0-16.0); Hypochromia SLIGHT = 6-15 cells (100X) (0-5/hpf); Lymphocytes 18 % (21-51); MDiff Complete? YES; Mean Corpuscular HGB CONC 29.6 g/dL (32.0-36.0); Mean Corpuscular Hemoglobin 25.4 pg (27.0-31.0); Mean Corpuscular Volume 85.8 fL (78.0-98.0); Mean Platelet Volume 10.3 fL (7.4-10.4); Monocytes 3 % (0-10); Neutrophil 74 % (42-75); Platelet Count 92 thou/uL (130-400); Platelet Morphology Comment Appears Adequate; Polychromasia SLIGHT = 2-3 cells (100X) (0-2/hpf); RBC Distribution Width 16.8 % (11.5-14.5); Red Blood Cell (RBC) Count 5.03 mill/uL (4.20-5.40); White Blood Cell (WBC) Count 7.1 thou/uL (4.8-10.8)
[2022-02-15 09:03] LABS: Anion Gap 13 mmol/L (10-20); BUN (Urea Nitrogen) 11 mg/dL (9.8-20.1); Calc. Creatinine Clearance 87 mL/min (70-130); Calcium 8.9 mg/dL (7.8-10.44); Carbon Dioxide 29 mmol/L (23-31); Chloride 103 mmol/L (98-107); Estimated GFR 98; Glucose 112 mg/dL (83-110); Sodium 141 mmol/L (136-145)
[2022-02-15] MEDS: REMDESIVIR 100 MG in Sodium Chloride 0.9% 250 ML 230 ML IV SCH (09:41)
[2022-02-15] MEDS: Dexamethasone 10 MG/ML VIAL SLOW IVP SCH (09:42)
[2022-02-15] MEDS: Pantoprazole 40 MG VIAL IVP SCH (09:42)
[2022-02-15] MEDS: Ascorbic Acid 500 mg Chewable Tablet PO SCH (09:45)
[2022-02-15] MEDS: Cholecalciferol (Vitamin D3) 400 UNITS TAB PO SCH (09:45)
[2022-02-15] MEDS: Gabapentin 300 MG CAP PO SCH ×2 (09:45→20:19)
[2022-02-15] MEDS: HYDROcodone/Acetaminophen 7.5/325 mg Tablet PO SCH ×3 (09:46→20:18)
[2022-02-15] MEDS: Zinc Sulfate 220 MG CAP PO SCH (09:46)
[2022-02-15] MEDS: Enoxaparin Sodium 40 MG/0.4 ML SYRINGE SC SCH (11:09)
[2022-02-15] MEDS: Benzonatate 100 MG CAP PO SCH (20:20)
[2022-02-15] MEDS: Amitriptyline HCl 25 MG TAB PO SCH (20:20)
[2022-02-15] MEDS: Nicotine 21 MG PATCH TOP SCH (20:20)
[2022-02-16 07:16] LABS: #Monocytes 0.4 thou/uL (0.11-0.59); #Neutrophils 6.1 thou/uL (1.40-6.50); %Eosinophils 0.1 % (0.0-10.0); %Lymphocytes 13.3 % (21.0-51.0); %Monocytes 4.9 % (0.0-10.0); %Neutrophils 81.7 % (42.0-75.0); Mean Corpuscular HGB CONC 29.2 g/dL (32.0-36.0); Mean Corpuscular Hemoglobin 24.9 pg (27.0-31.0); Mean Corpuscular Volume 85.2 fL (78.0-98.0); Mean Platelet Volume 8.7 fL (7.4-10.4); Platelet Count 209 thou/uL (130-400); Red Blood Cell (RBC) Count 4.81 mill/uL (4.20-5.40); White Blood Cell (WBC) Count 7.5 thou/uL (4.8-10.8)
[2022-02-16 07:32] LABS: Anion Gap 12 mmol/L (10-20); BUN (Urea Nitrogen) 12 mg/dL (9.8-20.1); Calc. Creatinine Clearance 86 mL/min (70-130); Calcium 9.1 mg/dL (7.8-10.44); Carbon Dioxide 31 mmol/L (23-31); Chloride 102 mmol/L (98-107); Estimated GFR 98; Glucose 125 mg/dL (83-110); Potassium 4.1 mmol/L (3.5-5.1); Sodium 141 mmol/L (136-145)
[2022-02-16] MEDS: Ascorbic Acid 500 mg Chewable Tablet PO SCH (09:39)
[2022-02-16] MEDS: HYDROcodone/Acetaminophen 7.5/325 mg Tablet PO SCH ×3 (09:40→21:26)
[2022-02-16] MEDS: Gabapentin 300 MG CAP PO SCH ×2 (09:41→21:26)
[2022-02-16] MEDS: Benzonatate 100 MG CAP PO SCH ×3 (09:41→21:26)
[2022-02-16] MEDS: Zinc Sulfate 220 MG CAP PO SCH (09:41)
[2022-02-16] MEDS: Cholecalciferol (Vitamin D3) 400 UNITS TAB PO SCH (09:41)
[2022-02-16] MEDS: Dexamethasone 10 MG/ML VIAL SLOW IVP SCH (09:42)
[2022-02-16] MEDS: REMDESIVIR 100 MG in Sodium Chloride 0.9% 250 ML 230 ML IV SCH (09:53)
[2022-02-16] MEDS: Enoxaparin Sodium 40 MG/0.4 ML SYRINGE SC SCH (10:12)
[2022-02-16] MEDS ORDERED: Amlodipine 5 MG TAB PO SCH (13:30)
[2022-02-16] MEDS ORDERED: hydrALAZINE 20 MG/ML VIAL SLOW IVP PRN (15:16)
[2022-02-16] MEDS: Amitriptyline HCl 25 MG TAB PO SCH (21:26)
[2022-02-16] MEDS: Nicotine 21 MG PATCH TOP SCH (21:27)
[2022-02-17] MEDS: Cholecalciferol (Vitamin D3) 400 UNITS TAB PO SCH (08:31)
[2022-02-17] MEDS: Ascorbic Acid 500 mg Chewable Tablet PO SCH (08:31)
[2022-02-17] MEDS: HYDROcodone/Acetaminophen 7.5/325 mg Tablet PO SCH (08:31)
[2022-02-17] MEDS: Benzonatate 100 MG CAP PO SCH (08:32)
[2022-02-17] MEDS: Gabapentin 300 MG CAP PO SCH (08:32)
[2022-02-17] MEDS: Zinc Sulfate 220 MG CAP PO SCH (08:32)
[2022-02-17 08:33] VITALS: BP 147/85
[2022-02-17] MEDS: Dexamethasone 10 MG/ML VIAL SLOW IVP SCH (08:33)
[2022-02-17] MEDS: Enoxaparin Sodium 40 MG/0.4 ML SYRINGE SC SCH (08:33)
[2022-02-17] MEDS ORDERED: Amlodipine 5 MG TAB PO SCH (09:00)
[2022-02-17 09:28] VITALS: TEMP 97.8
[2022-02-17] MEDS ORDERED: Nystatin 500,000 UNITS/5 ML UDCUP SSW SCH (13:00)
== END 2022-02-17 12:01 | disposition home or self-care (01) | DRG 177 ==
LOC: 2NO 22:58 → OBSVTOIN 02-14 14:29
PROVIDERS: ADMIT Hospitalist; ATTEND Hospitalist
PROC: XW033E5 Introduction of Remdesivir Anti-infective into Peripheral Vein, Percutaneous Approach, New Technology Group 5 (ICD-10-PCS; principal; 2022-02-14)
PROC: 8E0ZXY6 Isolation (ICD-10-PCS; 2022-02-14)
DX: U07.1 COVID-19 (principal); J96.01 Acute respiratory failure with hypoxia; J12.82 Pneumonia due to coronavirus disease 2019; J44.0 Chronic obstructive pulmonary disease with (acute) lower respiratory infection; J44.1 Chronic obstructive pulmonary disease with (acute) exacerbation; G51.0 Bell's palsy; I11.0 Hypertensive heart disease with heart failure; I50.9 Heart failure, unspecified; M10.9 Gout, unspecified; Z96.649 Presence of unspecified artificial hip joint; F17.210 Nicotine dependence, cigarettes, uncomplicated; Z99.81 Dependence on supplemental oxygen; Z88.0 Allergy status to penicillin; Z88.2 Allergy status to sulfonamides; Z79.899 Other long term (current) drug therapy; Z90.710 Acquired absence of both cervix and uterus; Z90.49 Acquired absence of other specified parts of digestive tract
CPT/HCPCS: 36415; 36416; 80048; 85025; 96372; 96374; 96375; C9113; G0378; J0248; J0360; J1100; J1650; J7050